=== PATIENT | female | born 1985 | race Caucasian/White ===

== ENCOUNTER 2023-07-27 21:33 | Outpatient (REF) | payer BC, SELFPAY ==
[2023-07-31 09:10] LABS: Age Gdln ACOG Testing Note (.); HPV Aptima Negative (Negative); IGP, Aptima HPV, rfx 16/18,45 Note (.)
== END 2023-07-27 21:34 | disposition home or self-care (01) ==
LOC: LAB 21:33
PROVIDERS: PCP Family Medicine; Visit Provider Obstetrics & Gynecology
DX: Z01.419 Encounter for gynecological examination (general) (routine) without abnormal findings (principal)
CPT/HCPCS: 87624; G0145

== ENCOUNTER 2023-09-21 10:00 | Outpatient (OUT) | payer BC, SELFPAY ==
--- OUTSIDE RECORDS SUMMARY | 2023-09-21 10:08 | XMS_ITS | CCD ---
Author Organization [facility] Care Team Providers Care Senior Net Web Developer Name Role Phone VI, DR GARRETT Admitting Unavailable VI, DR GARRETT Attending Unavailable NADERER, DR ASHER Page Primary Care Unavailable VI, DR GARRETT Consulting Unavailable WEST, DR MARCELLE Minor Consulting Unavailable JUANCARLOS, DR STEWART Primary Care Unavailable VI, DR GARRETT Attending Unavailable VI, DR GARRETT Admitting Unavailable VI, DR GARRETT Consulting Unavailable VI, DR GARRETT Consulting Unavailable JUANCARLOS, DR STEWART Primary Care Unavailable VI, DR GARRETT Attending Unavailable VI, DR GARRETT Admitting Unavailable NADERER, DR ASHER Page Admitting Unavailable NADERER, DR ASHER Page Attending Unavailable NADERER, DR ASHER Page Primary Care Unavailable NADERER, DR ASHER Page Consulting Unavailable VI, DR GARRETT Consulting Unavailable JUANCARLOS, DR STEWART Primary Care Unavailable VI, DR GARRETT Attending Unavailable VI, DR GARRETT Admitting Unavailable VI, DR GARRETT Admitting Unavailable VI, DR GARRETT Attending Unavailable JUANCARLOS, DR STEWART Primary Care Unavailable VI, DR GARRETT Procedure Practitioner Unavailab le VI, DR GARRETT Consulting Unavailable JUANCARLOS, DR STEWART Primary Care Unavailable VI, DR GARRETT Attending Unavailable VI, DR GARRETT Admitting Unavailable LUISA WOLF Consulting Unavailable VI, DR GARRETT Consulting Unavailable JUANCARLOS, DR STEWART Primary Care Unavailable VI, DR GARRETT Attending Unavailable VI, DR GARRETT Admitting Unavailable ZIEBER, DR SIRENA Butler Consulting Unavailable KARVIKI, DR STACK Consulting Unavailable KARGREGK, DR STACK Attending Unavailable KARASIK, DR STACK Admitting Unavailable JUANCARLOS, DR STEWART Primary Care Unavailable MICHELLE, DR MARCELLE Minor Consulting Unavailable VI, DR GARRETT Consulting Unavailable WEST, DR MARCELLE Minor Consulting Unavailable JUANCARLOS, DR STEWART [facility] Unavailable VI, DR GARRETT Attending Unavailable VI, DR GARRETT Admitting Unavailable VI, DR GARRETT Consulting Unavailable KARASIK, DR STACK Consulting Unavailable KARASIK, DR STACK Attending Unavailable KARASIK, DR STACK Admitting Unavailable JUANCARLOS, DR STEWART [facility] Unavailable VI, DR GARRETT Consulting Unavailable ZIEBER, DR SIRENA Butler Consulting Unavailable KARASIK, DR STACK Consulting Unavailable JUANCARLOS, DR STEWART [facility] Unavailable KARASIK, DR STACK Attending Unavailable KARASIK, DR STACK Admitting Unavailable ZIEBER, DR SIRENA Butler Consulting Unavailable KARASIK, DR STACK Consulting Unavailable KARASIK, DR STACK Attending Unavailable KARASIK, DR STACK Admitting Unavailable JUANCARLOS, DR STEWART [facility] Unavailable VI, DR GARRETT Consulting Unavailable ZIEBER, DR SIRENA Butler Consulting Unavailable KARASIK, DR STACK Consulting Unavailable KARASIK, DR STACK Attending Unavailable KARASIK, DR STACK Admitting Unavailable JUANCARLOS, DR STEWART [facility] Unavailable VI, DR GARRETT Consulting Unavailable ZIEBER, DR SIRENA Butler Consulting Unavailable VI, DR GARRETT Admitting Unavailable VI, DR GARRETT Attending Unavailable JUANCARLOS, DR STEWART [facility] Unavailable WEST, DR MARCELLE Minor Consulting Unavailable VI, DR GARRETT Consulting Unavailable VI, DR GARRETT Consulting Unavailable JUANCARLOS, DR STEWART [facility] Unavailable VI, DR GARRETT Attending Unavailable VI, DR GARRETT Admitting Unavailable ZIEBER, DR SIRENA Butler Consulting Unavailable KARASIK, DR STACK Consulting Unavailable JUANCARLOS, DR STEWART [facility] Unavailable VI, DR GARRETT Attending Unavailable VI, DR GARRETT Admitting Unavailable VI, DR GARRETT Consulting Unavailable JUANCARLOS, DR STEWART [facility] Care Unavailable VI, DR GARRETT Attending Unavailable VI, DR GARRETT Admitting Unavailable ZIEBER, DR SIRENA Butler Consulting Unavailable Asher Fuller MD Primary Care Provider ASHER FULLER Attending Unavailable VI, TAMI Attending Unavailable VI, TAMI Attending Unavailable Allergies Allergy Classification Reported Allergen(s) Allergy Type Date of Onset Reaction(s) Facility (1 source) Cefadroxil Drug Allergy [facility] (1 source) Ketorolac Drug Allergy [facility] (1 source) Sulfamethoxazole Drug Allergy [facility] (2 sources) Ketorolac Propensity to adverse reactions 11-05-19 [facility] (2 sources) Ketorolac trometamol Allergy to substance 06-25-19 [facility] Healthcare (2 sources) Sulfonamides (Antibiotic) Drug Allergy 06-25-19 [facility] Healthcare (2 sources) Wound Dressing Adhesive Drug Allergy 06-25-19 [facility] Healthcare Problems Active Problems Problem Classification Problem Date Documented Date Episodic/Chronic Anxiety disorders (2 sources) Acute stress disorder; Translations: [Acute stress reaction] Onset: 07-14-2023 07-14-2023 Chronic Asthma (2 sources) Asthma; Translations: [Unspecified asthma, uncomplicated] Onset: 07-14-2023 07-14-2023 Chronic Immunizations and screening for infectious disease (1 source) Encounter for screening for human papillomavirus (HPV); Translations: [ENC SCREENING HUMAN PAPILLOMAVIRUS] Onset: 07-22-2022 Episodic Mood disorders (2 sources) Recurrent major depression in remission; Translations: [Major depressive disorder, recurrent, in remission, unspecified] Onset: 07-14-2023 07-14-2023 Chronic Other connective tissue disease (2 sources) Plantar fasciitis of left foot; Translations: [Plantar fascial fibromatosis] Onset: 07-14-2023 07-14-2023 Episodic Other female genital disorders (2 sources) Pain in female genitalia on intercourse; Translations: [Unspecified dyspareunia] 07-27-2023 Chronic Other female genital disorders (2 sources) Hypertrophy of labia; Translations: [Unspecified hypertrophy of vulva] 07-27-2023 Episodic Other screening for suspected conditions (not mental disorders or infectious disease) (13 sources) Encounter for screening for malignant neoplasm of cervix; Translations: [Encounter for screening for Streptococcus B] Onset: 08-15-2021 Episodic Unclassified (1 source) CONTACT W/AND (SUSP) EXPOS COVID-19; Translations: [CONTACT W/AND (SUSP) EXPOS COVID-19] Onset: 12-24-2021 Viral infection (2 sources) Genital herpes simplex; Translations: [Herpesviral infection of urogenital system, unspecified] Onset: 07-14-2023 07-14-2023 Chronic Past or Other Problems Problem Classification Problem Date Documented Date Episodic/Chronic Diabetes mellitus without complication (4 sources) Other abnormal glucose; Translations: [OTHER ABNORMAL GLUCOSE] Onset: 09-10-2021 Episodic Hemorrhage during ; abruptio placenta; placenta previa (1 source) Low lying placenta NOS or without hemorrhage, second trimester; Translations: [LOW LYING PL NOS W/O HEMORR 2ND TRI] Onset: 08-19-2021 Episodic Other complications of (5 sources) Supervision of elderly multigravida, third trimester; Translations: [SUP ELDER MULTIGRAVIDA THIRD TRI] Onset: 12-21-2021 Episodic Other complications of (4 sources) Maternal care for excessive growth, third trimester, not applicable or unspecified; Translations: [MAT CARE EXCSS FTL GRTH 3RD TRI UNS] Onset: 11-15-2021 Episodic Other complications of (4 sources) Maternal care for excessive growth, unspecified trimester, not applicable or unspecified; Translations: [MAT CARE EXCSS FTL GRTH UNS TRI UNS] Onset: 09-04-2021 Episodic Other and delivery including normal (5 sources) Encounter for routine follow-up; Translations: [Single live ] Onset: 12-30-2021 Episodic Polyhydramnios and other problems of amniotic cavity (4 sources) Polyhydramnios, third trimester, not applicable or unspecified; Translations: [POLYHYDRAMNIOS THIRD TRI NA/UNS] Onset: 12-17-2021 Episodic Previous (8 sources) Maternal care for unspecified type scar from previous delivery; Translations: [Maternal care for low transverse scar from previous delivery] Onset: 11-17-2021 Episodic Residual codes; unclassified (1 source) 39 weeks gestation of ; Translations: [39 WEEKS GESTATION OF ] Onset: 12-30-2021 Episodic Residual codes; unclassified (1 source) Personal history of other complications of , childbirth and the puerperium; Translations: [PERS HX OTH COMP PG CHILDBIRTH AND PP] Onset: 12-30-2021 Episodic Residual codes; unclassified (1 source) 38 weeks gestation of ; Translations: [38 WEEKS GESTATION OF ] Onset: 12-24-2021 Episodic Residual codes; unclassified (1 source) 37 weeks gestation of ; Translations: [37 WEEKS GESTATION OF ] Onset: 12-21-2021 Episodic Residual codes; unclassified (1 source) 36 weeks gestation of ; Translations: [36 WEEKS GESTATION OF ] Onset: 12-11-2021 Episodic Residual codes; unclassified (1 source) 35 weeks gestation of ; Translations: [35 WEEKS GESTATION OF ] Onset: 12-03-2021 Episodic Residual codes; unclassified (1 source) 34 weeks gestation of ; Translations: [34 WEEKS GESTATION OF ] Onset: 11-25-2021 Episodic Residual codes; unclassified (1 source) 33 weeks gestation of ; Translations: [33 WEEKS GESTATION OF ] Onset: 12-24-2021 Episodic Residual codes; unclassified (1 source) 32 weeks gestation of ; Translations: [32 WEEKS GESTATION OF ] Onset: 12-24-2021 Episodic Residual codes; unclassified (1 source) 28 weeks gestation of ; Translations: [28 WEEKS GESTATION OF ] Onset: 10-15-2021 Episodic Residual codes; unclassified (1 source) 20 weeks gestation of ; Translations: [20 WEEKS GESTATION OF ] Onset: 08-19-2021 Episodic Results Test Name Value Interpretation Reference Range Facility PAP ACOG PANEL 2: 30 to 65on 07-28-2022 . . Normal [facility] Comment on above: Result Comment: Perf ormed at: WB Performed By: #### [id number] #### [facility] [address] [place] [address] Dr. Jensen Mckeon Age Gdln ACOG Testing Normal [facility] Comment on above: Performed By: #### [id number] #### [facility] [address] [address] [address] Jensen Mckeon DIAGNOSIS: Comment Normal [facility] Comment on above: Result Comment: NEGA TIVE FOR INTRAEPITHELIAL LESION OR MALIGNANCY. Performed at: WB Performed By: #### [id number] #### [facility] [address] [address] [address] Jensen Mckeon HPV Aptima Negative Normal Negative [facility] Comment on above: Result Comment: This nucleic acid amplification test detects fourteen high-risk HPV types (16,18,31,33,35,39,45,51,52,56,58,59,66,68) without differentiation. Performed at: =G Performed By: #### [id number] #### [facility] [address] [place] [address] Dr. Jensen Mckeon HPV Genotype Reflex Comment Normal [facility] Comment on above: Result Comment: Crit eria not met, HPV Genotype not performed. Performed at: WB Performed By: #### [id number] #### [facility] [address] [place] [address] Dr. Jensen Mckeon Methodology: CTIM Normal [facility] Comment on above: Result Comment: The Thin Prep(R) Review Assistant was unable to read this specimen. Therefore a manual review was performed. Performed at: WB Performed By: #### [id number] #### [facility] [address] [place] [address] Dr. Jensen Mckeon Note: Comment Normal [facility] Comment on above: Result Comment: The Pap smear is a screening test designed to aid in the detection of premalignant and malignant conditions of the uterine cervix. It is not a diagnostic procedure and should not be used as the sole means of detecting cervical cancer. Both false-positive and false-negative reports do occur. . Performed at: WB Performed By: #### [id number] #### [facility] [address] [place] [address] Dr. Jensen Mckeon Performed by: Comment Normal [facility] Comment on above: Result Comment: Yo Garcia, Heel Seat Filler (ASCP) Performed at: WB Performed By: #### [id number] #### [facility] [address] [place] [address] Dr. Jensen Mckeon Specimen adequacy: Comment Normal [facility] Comment on above: Result Comment: Sati sfactory for evaluation. Endocervical and/or squamous metaplastic cells (endocervical component) are present. Performed at: WB Performed By: #### [id number] #### [facility] [address] [place] [address] Dr. Jensen Mckeon CBC AUTO DIFFon 04-09-2022 BASO # 0.1 103/ul Normal 0.0-0.1 [facility] Comment on above: Performed By: #### L IVER, BMP, TSH, LIPID #### [facility] [address] [place] [address] Dr. Jensen Mckeon Basophils/100 WBC (Bld) 0.7 % Normal 0.2-2.0 [facility] Comment on above: Performed By: #### L IVER, BMP, TSH, LIPID #### [facility] [address] [place] [address] Dr. Jensen Mckeon EO # 0.3 103/ul Normal 0.0-0.7 [facility] Comment on above: Performed By: #### L IVER, BMP, TSH, LIPID #### [facility] [address] [place] [address] Dr. Jensen Mckeon Eosinophils/100 WBC (Bld) 4.0 % Normal 0.9-7.0 [facility] Comment on above: Performed By: #### L IVER, BMP, TSH, LIPID #### [facility] [address] [place] [address] Dr. Jensen Mckeon Erythrocyte distribution width (RBC) [Ratio] 14.6 % Normal 11.0-15.0 [facility] Comment on above: Performed By: #### L IVER, BMP, TSH, LIPID #### [facility] [address] [place] [address] Dr. Jensen Mckeon Hematocrit (Bld) [Volume fraction] 39.7 % Normal 36.0-48.0 [facility] Comment on above: Performed By: #### L IVER, BMP, TSH, LIPID #### [facility] [address] [place] [address] Dr. Jensen Mckeon Hemoglobin (Bld) [Mass/Vol] 12.8 g/dL Normal 12.0-16.0 [facility] Comment on above: Performed By: #### L IVER, BMP, TSH, LIPID #### [facility] [address] [address] [address] Jensen Mckeon IG # 0.02 10e3/ul Normal 0.00-0.03 [facility] Comment on above: Performed By: #### L IVER, BMP, TSH, LIPID #### [facility] [address] [place] [address] Dr. Jensen Mckeon IG % 0.3 % Normal 0.0-0.5 [facility] Comment on above: Performed By: #### L IVER, BMP, TSH, LIPID #### [facility] [address] [place] [address] Dr. Jensen Mckeon LYMPH # 1.2 103/ul Normal 1.2-3.8 [facility] Comment on above: Performed By: #### L IVER, BMP, TSH, LIPID #### [facility] [address] [place] [address] Dr. Jensen Mckeon Lymphocytes/100 WBC (Bld) 15.7 % Critically low 20.5-60.0 [facility] Comment on above: Performed By: #### L IVER, BMP, TSH, LIPID #### [facility] [address] [place] [address] Dr. Jensen Mckeon MANUAL DIFF REQ NO Normal [facility] Comment on above: Performed By: #### L IVER, BMP, TSH, LIPID #### [facility] [address] [place] [address] Dr. Jensen Mckeon MCH (RBC) [Entitic mass] 26.7 pg Normal 26.7-34.0 [facility] Comment on above: Performed By: #### L IVER, BMP, TSH, LIPID #### [facility] [address] [place] [address] Dr. Jensen Mckeon MCHC (RBC) [Mass/Vol] 32.2 g/dL Normal 29.9-35.2 [facility] Comment on above: Performed By: #### L IVER, BMP, TSH, LIPID #### [facility] [address] [place] [address] Dr. Jensen Mckeon MCV (RBC) [Entitic vol] 82.9 fL Normal 81.0-99.0 [facility] Comment on above: Performed By: #### L IVER, BMP, TSH, LIPID #### [facility] [address] [place] [address] Dr. Jensen Mckeon MONO # 0.7 103/ul Normal 0.3-0.8 [facility] Comment on above: Performed By: #### L IVER, BMP, TSH, LIPID #### [facility] [address] [place] [address] Dr. Jensen Mckeon Monocytes/100 WBC (Bld) 9.2 % Normal 1.7-12.0 [facility] Comment on above: Performed By: #### L IVER, BMP, TSH, LIPID #### [facility] [address] [place] [address] Dr. Jensen Mckeon NEUT # 5.3 103/ul Normal 1.4-6.5 [facility] Comment on above: Performed By: #### L IVER, BMP, TSH, LIPID #### [facility] [address] [place] [address] Dr. Jensen Mckeon Neutrophils/100 WBC (Bld) 70.1 % Normal 43.0-75.0 [facility] Comment on above: Performed By: #### L IVER, BMP, TSH, LIPID #### [facility] [address] [place] [address] Dr. Jensen Mckeon Platelet mean volume (Bld) [Entitic vol] 9.1 fL Critically low 9.5-13.5 [facility] Comment on above: Performed By: #### L IVER, BMP, TSH, LIPID #### [facility] [address] [place] [address] Dr. Jensen Mckeon PLT 310 103/ul Normal 150-450 [facility] Comment on above: Performed By: #### L IVER, BMP, TSH, LIPID #### [facility] [address] [place] [address] Dr. Jensen Mckeon RBC 4.79 106/ul Normal 4.20-5.40 [facility] Comment on above: Performed By: #### L IVER, BMP, TSH, LIPID #### [facility] [address] [address] [address] Jensen Mckeon WBC 7.5 103/ul Normal 4.0-11.0 [facility] Comment on above: Performed By: #### L IVER, BMP, TSH, LIPID #### [facility] [address] [address] [address] Jensen Mckeon GLYCOHEMOGLOBIN A1Con 2021 ADA RECOMMENDATION SEE BELOW Normal [facility] Comment on above: Result Comment: ADA RECOMMENDED LIMIT 4.0 - 6.0 ADA THERAPEUTIC TARGET < 7.0 ACTION SUGGESTED > 7.0 Performed By: #### L IVER, BMP, TSH, LIPID #### [facility] [address] [address] [address] Jensen Mckeon Glucose [Mass/Vol] 123 mg/dL Normal [facility] Comment on above: Performed By: #### L IVER, BMP, TSH, LIPID #### [facility] [address] [address] [address] Jensen Mckeon HbA1c (Bld) [Mass fraction] 5.9 % Normal 4.5-6.2 [facility] Comment on above: Performed By: #### L IVER, BMP, TSH, LIPID #### [facility] [address] [place] [address] Dr. Jensen Mckeon LIPID PROFILEon 04-09-2022 CHOL-HDL RATIO NORM SEE BELOW Normal [facility] Comment on above: Result Comment: 3.3 - 4.4 LOW RISK 4.4 - 7.1 AVERAGE RISK 7.1 - 11.0 MODERATE RISK >11.0 HIGH RISK Performed By: #### L IVER, BMP, TSH, LIPID #### [facility] [address] [address] [address] Jensen Mckeon Cholesterol [Mass/Vol] 174 mg/dL Normal <=200 [facility] Comment on above: Performed By: #### L IVER, BMP, TSH, LIPID #### [facility] [address] [address] [address] Jensen Mckeon Cholesterol in HDL [Mass/Vol] 75 mg/dL Critically high 40-60 [facility] Comment on above: Performed By: #### L IVER, BMP, TSH, LIPID #### [facility] [address] [address] [address] Jensen Mckeon Cholesterol in LDL [Mass/Vol] 86.0 mg/dL Normal [facility] Comment on above: Performed By: #### L IVER, BMP, TSH, LIPID #### [facility] [address] [address] [address] Jensen Mckeon Cholesterol.total/Cho lesterol in HDL [Mass ratio] 2.3 {ratio} Normal [facility] Comment on above: Performed By: #### L IVER, BMP, TSH, LIPID #### [facility] [address] [address] [address] Jensen Mckeon HDL NORMAL > or = 60 mg/dl - LO W CARDIOVASCULAR RISK <40 mg/dl - HIGH CARDIOVASCULAR RISK Normal [facility] Comment on above: Performed By: #### L IVER, BMP, TSH, LIPID #### [facility] [address] [place] [address] Dr. Jensen Mckeon LDL CALC NORMAL SEE BELOW Normal [facility] Comment on above: Result Comment: <100 mg/dl OPTIMAL 100 - 129 mg/dl NEAR OR ABOVE OPTIMAL 130 - 159 mg/dl BORDERLINE HIGH 160 - 189 mg/dl HIGH >190 mg/dl VERY HIGH Performed By: #### L IVER, BMP, TSH, LIPID #### [facility] [address] [address] [address] Jensen Mckeon Triglyceride [Mass/Vol] 65 mg/dL Normal <=150 [facility] Comment on above: Performed By: #### L IVER, BMP, TSH, LIPID #### [facility] [address] [address] [address] Jensen Mckeon VLDL CALC 13.0 mg/dL Normal [facility] Comment on above: Performed By: #### L IVER, BMP, TSH, LIPID #### [facility] [address] [address] [address] Jensen Mckeon LIVER PROFILEon 04-09-2022 Albumin [Mass/Vol] 3.9 g/dL Normal 3.4-5.0 [facility] Comment on above: Performed By: #### L IVER, BMP, TSH, LIPID #### [facility] [address] [place] [address] Dr. Jensen Mckeon Albumin/Globulin [Mass ratio] 1.0 {ratio} Normal [facility] Comment on above: Performed By: #### L IVER, BMP, TSH, LIPID #### [facility] [address] [place] [address] Dr. Jensen Mckeon ALP [Catalytic activity/Vol] 94 U/L Normal 46-116 [facility] Comment on above: Performed By: #### L IVER, BMP, TSH, LIPID #### [facility] [address] [place] [address] Dr. Jensen Mckeon ALT [Catalytic activity/Vol] 40 U/L Normal 14-59 [facility] Comment on above: Performed By: #### L IVER, BMP, TSH, LIPID #### [facility] [address] [place] [address] Dr. Jensen Mckeon AST [Catalytic activity/Vol] 22 U/L Normal 15-37 [facility] Comment on above: Performed By: #### L IVER, BMP, TSH, LIPID #### [facility] [address] [place] [address] Dr. Jensen Mckeon BILI, CONJUGATED 0.1 mg/dL Normal 0.0-0.2 [facility] Comment on above: Performed By: #### L IVER, BMP, TSH, LIPID #### [facility] [address] [place] [address] Dr. Jensen Mckeon Bilirubin [Mass/Vol] 0.2 mg/dL Normal 0.2-1.0 [facility] Comment on above: Performed By: #### L IVER, BMP, TSH, LIPID #### [facility] [address] [place] [address] Dr. Jensen Mckeon Globulin (S) [Mass/Vol] 3.8 g/dL Normal [facility] Comment on above: Performed By: #### L IVER, BMP, TSH, LIPID #### [facility] [address] [address] [address] Jensen Mckeon Protein [Mass/Vol] 7.7 g/dL Normal 6.4-8.2 [facility] Comment on above: Performed By: #### L IVER, BMP, TSH, LIPID #### [facility] [address] [place] [address] Dr. Jensen Mckeon PROF CHEM 8 (BAS METB)on Anion gap [Moles/Vol] 11.3 mmol/L Normal [facility] Comment on above: Performed By: #### L IVER, BMP, TSH, LIPID #### [facility] [address] [place] [address] Dr. Jensen Mckeon Calcium [Mass/Vol] 9.5 mg/dL Normal 8.5-10.1 [facility] Comment on above: Performed By: #### L IVER, BMP, TSH, LIPID #### [facility] [address] [place] [address] Dr. Jensen Mckeon Chloride [Moles/Vol] 103 mmol/L Normal 98-107 [facility] Comment on above: Performed By: #### L IVER, BMP, TSH, LIPID #### [facility] [address] [place] [address] Dr. Jensen Mckeon CO2 [Moles/Vol] 27.8 mmol/L Normal 21.0-32.0 [facility] Comment on above: Performed By: #### L IVER, BMP, TSH, LIPID #### [facility] [address] [place] [address] Dr. Jensen Mckeon Creatinine [Mass/Vol] 0.79 mg/dL Normal 0.55-1.02 [facility] Comment on above: Performed By: #### L IVER, BMP, TSH, LIPID #### [facility] [address] [place] [address] Dr. Jensen Mckeon EGFR-AF MALAYSIAN >60 Normal >=60 [facility] Comment on above: Performed By: #### L IVER, BMP, TSH, LIPID #### [facility] [address] [address] [address] Jensen Mckeon EGFR-NON AF MALAYSIAN >60 Normal >=60 [facility] Comment on above: Performed By: #### L IVER, BMP, TSH, LIPID #### [facility] [address] [address] [address] Jensen Mckeon Glucose [Mass/Vol] 77 mg/dL Normal 74-106 [facility] Comment on above: Performed By: #### L IVER, BMP, TSH, LIPID #### [facility] Laboratory [address] [address] [address] Jensen Mckeon Potassium [Moles/Vol] 4.1 mmol/L Normal 3.5-5.1 [facility] Comment on above: Performed By: #### L IVER, BMP, TSH, LIPID #### [facility] [address] [address] [address] Jensen Mckeon Sodium [Moles/Vol] 138 mmol/L Normal 136-145 [facility] Comment on above: Performed By: #### L IVER, BMP, TSH, LIPID #### [facility] [address] [address] [address] Jensen Mckeon Urea nitrogen [Mass/Vol] 15.0 mg/dL Normal 7.0-18.0 [facility] Comment on above: Performed By: #### L IVER, BMP, TSH, LIPID #### [facility] [address] [address] [address] Jensen Mckeon Urea nitrogen/Creatinine [Mass ratio] 19.0 mg/mg Normal [facility] Comment on above: Performed By: #### L IVER, BMP, TSH, LIPID #### [facility] [address] [place] [address] Dr. Jensen Mckeon TSHon 04-09-2022 TSH 0.959 uIU/mL Normal 0.358-3.740 [facility] Comment on above: Performed By: #### L IVER, BMP, TSH, LIPID #### [facility] [address] [address] [address] Jensen Mckeon CBC AUTO DIFFon 12-26-2021 BASO # 0.1 103/ul Normal 0.0-0.1 [facility] Comment on above: Performed By: #### L IVER, BMP, TSH, LIPID #### [facility] [address] [place] [address] Dr. Jensen Mckeon Basophils/100 WBC (Bld) 0.4 % Normal 0.2-2.0 [facility] Comment on above: Performed By: #### L IVER, BMP, TSH, LIPID #### [facility] [address] [place] [address] Dr. Jensen Mckeon EO # 0.1 103/ul Normal 0.0-0.7 [facility] Comment on above: Performed By: #### L IVER, BMP, TSH, LIPID #### [facility] [address] [place] [address] Dr. Jensen Mckeon Eosinophils/100 WBC (Bld) 0.4 % Critically low 0.9-7.0 [facility] Comment on above: Performed By: #### L IVER, BMP, TSH, LIPID #### [facility] [address] [place] [address] Dr. Jensen Mckeon Erythrocyte distribution width (RBC) [Ratio] 15.1 % Critically high 11.0-15.0 [facility] Comment on above: Performed By: #### L IVER, BMP, TSH, LIPID #### [facility] [address] [place] [address] Dr. Jensen Mckeon Hematocrit (Bld) [Volume fraction] 24.2 % Critically low 36.0-48.0 [facility] Comment on above: Performed By: #### L IVER, BMP, TSH, LIPID #### [facility] [address] [place] [address] Dr. Jensen Mckeon Hemoglobin (Bld) [Mass/Vol] 7.4 g/dL Critically low 12.0-16.0 [facility] Comment on above: Performed By: #### L IVER, BMP, TSH, LIPID #### [facility] [address] [place] [address] Dr. Jensen Mckeon IG # 0.18 10e3/ul Critically high 0.00-0.03 [facility] Comment on above: Performed By: #### L IVER, BMP, TSH, LIPID #### [facility] [address] [address] [address] Jensen Mckeon IG % 1.3 % Critically high 0.0-0.5 [facility] Comment on above: Performed By: #### L IVER, BMP, TSH, LIPID #### [facility] [address] [address] [address] Jensen Mckeon LYMPH # 1.7 103/ul Normal 1.2-3.8 [facility] Comment on above: Performed By: #### L IVER, BMP, TSH, LIPID #### [facility] [address] [place] [address] Dr. Jensen Mckeon Lymphocytes/100 WBC (Bld) 12.4 % Critically low 20.5-60.0 [facility] Comment on above: Performed By: #### L IVER, BMP, TSH, LIPID #### [facility] [address] [place] [address] Dr. Jensen Mckeon MANUAL DIFF REQ NO Normal [facility] Comment on above: Performed By: #### L IVER, BMP, TSH, LIPID #### [facility] [address] [place] [address] Dr. Jensen Mckeon MCH (RBC) [Entitic mass] 24.9 pg Critically low 26.7-34.0 [facility] Comment on above: Performed By: #### L IVER, BMP, TSH, LIPID #### [facility] [address] [place] [address] Dr. Jensen Mckeon MCHC (RBC) [Mass/Vol] 30.6 g/dL Normal 29.9-35.2 [facility] Comment on above: Performed By: #### L IVER, BMP, TSH, LIPID #### [facility] [address] [place] [address] Dr. Jensen Mcekon MCV (RBC) [Entitic vol] 81.5 fL Normal 81.0-99.0 [facility] Comment on above: Performed By: #### L IVER, BMP, TSH, LIPID #### [facility] [address] [place] [address] Dr. Jensen Mckeon MONO # 1.0 103/ul Critically high 0.3-0.8 [facility] Comment on above: Performed By: #### L IVER, BMP, TSH, LIPID #### [facility] [address] [place] [address] Dr. Jensen Mckeon Monocytes/100 WBC (Bld) 7.4 % Normal 1.7-12.0 [facility] Comment on above: Performed By: #### L IVER, BMP, TSH, LIPID #### [facility] [address] [place] [address] Dr. Jensen Mckeon NEUT # 10.9 103/ul Critically high 1.4-6.5 [facility] Comment on above: Performed By: #### L IVER, BMP, TSH, LIPID #### [facility] [address] [place] [address] Dr. Jensen Mckeon Neutrophils/100 WBC (Bld) 78.1 % Critically high 43.0-75.0 [facility] Comment on above: Performed By: #### L IVER, BMP, TSH, LIPID #### [facility] [address] [place] [address] Dr. Jensen Mckeon Platelet mean volume (Bld) [Entitic vol] 9.0 fL Critically low 9.5-13.5 [facility] Comment on above: Performed By: #### L IVER, BMP, TSH, LIPID #### [facility] [address] [place] [address] Dr. Jensen Mckeon PLT 253 103/ul Normal 150-450 [facility] Comment on above: Performed By: #### L IVER, BMP, TSH, LIPID #### [facility] [address] [place] [address] Dr. Jensen Mckeon RBC 2.97 106/ul Critically low 4.20-5.40 [facility] Comment on above: Performed By: #### L IVER, BMP, TSH, LIPID #### [facility] [address] [place] [address] Dr. Jensen Mckeon WBC 13.9 103/ul Critically high 4.0-11.0 [facility] Comment on above: Performed By: #### L IVER, BMP, TSH, LIPID #### [facility] [address] [place] [address] Dr. Jensen Mckeon CBC AUTO DIFFon 12-25-2021 BASO # 0.1 103/ul Normal 0.0-0.1 [facility] Comment on above: Performed By: #### L IVER, BMP, TSH, LIPID #### [facility] [address] [place] [address] Dr. Jensen Mckeon Basophils/100 WBC (Bld) 0.8 % Normal 0.2-2.0 [facility] Comment on above: Performed By: #### L IVER, BMP, TSH, LIPID #### [facility] [address] [place] [address] Dr. Jensen Mckeon EO # 0.2 103/ul Normal 0.0-0.7 [facility] Comment on above: Performed By: #### L IVER, BMP, TSH, LIPID #### [facility] [address] [place] [address] Dr. Jensen Mckeon Eosinophils/100 WBC (Bld) 2.1 % Normal 0.9-7.0 [facility] Comment on above: Performed By: #### L IVER, BMP, TSH, LIPID #### [facility] [address] [place] [address] Dr. Jensen Mckeon Erythrocyte distribution width (RBC) [Ratio] 14.9 % Normal 11.0-15.0 [facility] Comment on above: Performed By: #### L IVER, BMP, TSH, LIPID #### [facility] [address] [place] [address] Dr. Jensen Mckeon Hematocrit (Bld) [Volume fraction] 29.8 % Critically low 36.0-48.0 [facility] Comment on above: Performed By: #### L IVER, BMP, TSH, LIPID #### [facility] [address] [place] [address] Dr. Jensen Mckeon Hemoglobin (Bld) [Mass/Vol] 9.5 g/dL Critically low 12.0-16.0 [facility] Comment on above: Performed By: #### L IVER, BMP, TSH, LIPID #### [facility] [address] [address] [address] Jensen Mckeon IG # 0.19 10e3/ul Critically high 0.00-0.03 [facility] Comment on above: Performed By: #### L IVER, BMP, TSH, LIPID #### [facility] [address] [address] [address] Jensen Mckeon IG % 2.0 % Critically high 0.0-0.5 [facility] Comment on above: Performed By: #### L IVER, BMP, TSH, LIPID #### [facility] [address] [address] [address] Jensen Mckeon LYMPH # 1.9 103/ul Normal 1.2-3.8 [facility] Comment on above: Performed By: #### L IVER, BMP, TSH, LIPID #### [facility] [address] [address] [address] Jensen Mckeon Lymphocytes/100 WBC (Bld) 20.6 % Normal 20.5-60.0 [facility] Comment on above: Performed By: #### L IVER, BMP, TSH, LIPID #### [facility] [address] [address] [address] Jensen Mckeon MANUAL DIFF REQ NO Normal [facility] Comment on above: Performed By: #### L IVER, BMP, TSH, LIPID #### [facility] [address] [address] [address] Jensen Mckeon MCH (RBC) [Entitic mass] 25.3 pg Critically low 26.7-34.0 [facility] Comment on above: Performed By: #### L IVER, BMP, TSH, LIPID #### [facility] [address] [address] [address] Jensen Mckeon MCHC (RBC) [Mass/Vol] 31.9 g/dL Normal 29.9-35.2 [facility] Comment on above: Performed By: #### L IVER, BMP, TSH, LIPID #### [facility] [address] [place] [address] Dr. Jensen Mckeon MCV (RBC) [Entitic vol] 79.3 fL Critically low 81.0-99.0 [facility] Comment on above: Performed By: #### L IVER, BMP, TSH, LIPID #### [facility] [address] [place] [address] Dr. Jensen Mckeon MONO # 0.8 103/ul Normal 0.3-0.8 [facility] Comment on above: Performed By: #### L IVER, BMP, TSH, LIPID #### [facility] [address] [place] [address] Dr. Jensen Mckeon Monocytes/100 WBC (Bld) 8.0 % Normal 1.7-12.0 [facility] Comment on above: Performed By: #### L IVER, BMP, TSH, LIPID #### [facility] [address] [place] [address] Dr. Jensen Mckeon NEUT # 6.2 103/ul Normal 1.4-6.5 [facility] Comment on above: Performed By: #### L IVER, BMP, TSH, LIPID #### [facility] [address] [place] [address] Dr. Jensen Mckeon Neutrophils/100 WBC (Bld) 66.5 % Normal 43.0-75.0 [facility] Comment on above: Performed By: #### L IVER, BMP, TSH, LIPID #### [facility] [address] [place] [address] Dr. Jensen Mckeon Platelet mean volume (Bld) [Entitic vol] 9.2 fL Critically low 9.5-13.5 [facility] Comment on above: Performed By: #### L IVER, BMP, TSH, LIPID #### [facility] [address] [place] [address] Dr. Jensen Mckeon PLT 300 103/ul Normal 150-450 [facility] Comment on above: Performed By: #### L IVER, BMP, TSH, LIPID #### [facility] [address] [address] [address] Jensen Mckeon RBC 3.76 106/ul Critically low 4.20-5.40 [facility] Comment on above: Performed By: #### L IVER, BMP, TSH, LIPID #### [facility] [address] [place] [address] Dr. Jensen Mckeon WBC 9.3 103/ul Normal 4.0-11.0 [facility] Comment on above: Performed By: #### L IVER, BMP, TSH, LIPID #### [facility] [address] [place] [address] Dr. Jensen Mckeon CULTURE URINEon 12-25-2021 CULTURE URINE Culture Observations : LIGHT GROWTH OF MIXED GENITAL DALIA. NO POTENTIAL PATHOGENS SEEN. Normal [facility] Comment on above: Performed By: #### L IVER, BMP, TSH, LIPID #### [facility] [address] [place] [address] Dr. Jensen Mckeon DRUG SCREEN RAPID (URINE)on 12-25-2021 AMP Negative Normal NEGATIVE [facility] Comment on above: Performed By: #### D RUGRPD #### [facility] [address] [place] [address] Dr. Jensen Mckeon BAR Negative Normal NEGATIVE [facility] Comment on above: Performed By: #### D RUGRPD #### [facility] [address] [place] [address] Dr. Jensen Mckeon BUP Negative Normal NEGATIVE [facility] Comment on above: Performed By: #### D RUGRPD #### [facility] [address] [place] [address] Dr. Jensen Mckeon BZO Negative Normal NEGATIVE [facility] Comment on above: Performed By: #### D RUGRPD #### [facility] [address] [place] [address] Dr. Jensen Mckeon WES Negative Normal NEGATIVE [facility] Comment on above: Performed By: #### D RUGRPD #### [facility] [address] [place] [address] Dr. Jensen Mckeon CUT-OFFS SEE BELOW Normal [facility] Comment on above: Result Comment: AMP (Amphetamine): 500ng/mL, BAR (Barbituates): 200 ng/mL, BZO (Benzodiazepines): 150 ng/mL, BUP (Buprenorphine): 10 ng/mL, WES (Cocaine): 150 ng/mL, mAMP (Methamphetamine): 500 ng/mL, MTD (Methadone): 200 ng/mL, OPI (Opiates): 100 ng/mL, OXY (Oxycodone): 100 ng/mL, PCP (Phencyclidine): 25 ng/mL, PPX (Propoxyphene): 300 ng/mL, THC (Cannabinoids): 50 ng/mL, TCA (Trycyclic Antidepressants): 300 ng/mL Performed By: #### D RUGRPD #### [facility] [address] [place] [address] Dr. Jensen Mckeon DRUG CUT HEADER DRUG CLASS TEST SYSTEM CUT-OFF CONCENTRATIONS ARE FOLLOWS: Normal [facility] Comment on above: Performed By: #### D RUGRPD #### [facility] [address] [place] [address] Dr. Jensen Mckeon mAMP Negative Normal NEGATIVE [facility] Comment on above: Performed By: #### D RUGRPD #### [facility] [address] [place] [address] Dr. Jensen Mckeon MTD Negative Normal NEGATIVE [facility] Comment on above: Performed By: #### D RUGRPD #### [facility] [address] [place] [address] Dr. Jensen Mckeon OPI Negative Normal NEGATIVE [facility] Comment on above: Performed By: #### D RUGRPD #### [facility] [address] [place] [address] Dr. Jensen Mckeon OXY Negative Normal NEGATIVE [facility] Comment on above: Performed By: #### D RUGRPD #### [facility] [address] [place] [address] Dr. Jensen Mckeon PCP Negative Normal NEGATIVE [facility] Comment on above: Performed By: #### D RUGRPD #### [facility] [address] [address] [address] Jensen Mckeon PPX Negative Normal NEGATIVE [facility] Comment on above: Performed By: #### D RUGRPD #### [facility] [address] [place] [address] Dr. Jensen Mckeon TCA Negative Normal NEGATIVE [facility] Comment on above: Performed By: #### D RUGRPD #### [facility] [address] [place] [address] Dr. Jensen Mckeon THC Negative Normal NEGATIVE [facility] Comment on above: Performed By: #### D RUGRPD #### [facility] [address] [place] [address] Dr. Jensen Mckeon TYPE AND SCREENon 12-25-2021 TYPE AND SCREEN Negative Normal [facility] Comment on above: Performed By: #### L IVER, BMP, TSH, LIPID #### [facility] [address] [place] [address] Dr. Jensen Mckeon UA (CLEAN/CATCH) HUMAN RESOURCES DESIGNATE/MICRO I F IND.on 12-25-2021 Bilirubin Ql (U) Negative Normal NEGATIVE [facility] Comment on above: Performed By: #### U ACSIND, UMICRO #### [facility] [address] [place] [address] Dr. Jensen Mckeon Clarity (U) CLEAR Normal CLEAR [facility] Comment on above: Performed By: #### U ACSIND, UMICRO #### [facility] [address] [place] [address] Dr. Jnesen Mckeon Color (U) LT. YELLOW Normal YELLOW [facility] Comment on above: Performed By: #### U ACSIND, UMICRO #### [facility] [address] [place] [address] Dr. Jensen Mckeon Glucose Ql (U) Negative Normal NEGATIVE [facility] Comment on above: Performed By: #### U ACSIND, UMICRO #### [facility] [address] [place] [address] Dr. Jensen Mckeon Hemoglobin Ql (U) Negative Normal NEGATIVE [facility] Comment on above: Performed By: #### U ACSIND, UMICRO #### [facility] [address] [address] [address] Jensen Mckeon Ketones Ql (U) Negative Normal NEGATIVE [facility] Comment on above: Performed By: #### U ACSIND, UMICRO #### [facility] [address] [address] [address] Jensen Mckeon LEUKOCYTES TRACE Abnormal NEGATIVE [facility] Comment on above: Performed By: #### U ACSIND, UMICRO #### [facility] [address] [address] [address] Jensen Mckeon Nitrite Ql (U) Negative Normal NEGATIVE [facility] Comment on above: Performed By: #### U ACSIND, UMICRO #### [facility] [address] [place] [address] Dr. Jensen Mckeon pH (U) 6.5 [pH] Normal 5-9 [facility] Comment on above: Performed By: #### U ACSCASSANDRA, UMICRO #### [facility] [address] [place] [address] Dr. Jensen Mckeon SPEC GRAVITY 1.025 Normal 1.005-<=1.025 [facility] Comment on above: Performed By: #### U ACSCASSANDRA, UMICRO #### [facility] [address] [place] [address] Dr. Jensen Mckeon UA PROTEIN Negative Normal NEGATIVE/ TRACE [facility] Comment on above: Performed By: #### U ACSCASSANDRA, UMICRO #### [facility] [address] [place] [address] Dr. Jensen Mckeon UR MICRO IND INDICATED Normal [facility] Comment on above: Performed By: #### U ACSIND, UMICRO #### [facility] [address] [place] [address] Dr. Jensen Mckeon Urobilinogen Qn (U) 0.2 {Cherelle'U}/dL Normal 0.2 - 1. 0 [facility] Comment on above: Performed By: #### U ACSIND, UMICRO #### [facility] [address] [place] [address] Dr. Jensen Mckeon URINE MICROSCOPIC ONLYon BACTERIA MODERATE Abnormal NONE SEEN [facility] Comment on above: Performed By: #### U ACSIND, UMICRO #### [facility] [address] [place] [address] Dr. Jensen Mckeon Bacteria identified Cx Nom (U) INDICATED Normal [facility] Comment on above: Performed By: #### U ACSIND, UMICRO #### [facility] [address] [place] [address] Dr. Jensen Mckeon CAST NONE SEEN Normal NONE SEEN [facility] Comment on above: Performed By: #### U ACSIND, UMICRO #### [facility] [address] [place] [address] Dr. Jensen Mckeon Crystals LM Nom (Urine sed) NONE SEEN Normal NONE SEEN [facility] Comment on above: Performed By: #### U ACSIND, UMICRO #### [facility] [address] [place] [address] Dr. Jensen Mckeon Epithelial cells LM Ql (Urine sed) MANY Abnormal NONE SEEN /RARE [facility] Comment on above: Performed By: #### U ACSIND, UMICRO #### [facility] [address] [place] [address] Dr. Jensen Mckeon MUCOUS NONE SEEN Normal NONE SEEN [facility] Comment on above: Performed By: #### U ACSIND, UMICRO #### [facility] [address] [place] [address] Dr. Jensen Mckeon RBC 0-2 Normal 0-2 [facility] Comment on above: Performed By: #### U ACSIND, UMICRO #### [facility] [address] [place] [address] Dr. Jensen Mckeon WBC 5-10 Abnormal NONE SEEN [facility] Comment on above: Performed By: #### U ACSIND, UMICRO #### [facility] [address] [place] [address] Dr. Jensen Mckeon Covid-19 PCR (CVDTB)on 12-12 SARS-CoV-2 (COVID-19) RNA SRAVANTHI+probe Ql (Unsp spec) Not detected Normal NOT DETECTED [facility] Comment on above: Result Comment: This test is not yet approved or cleared by the [place] FDA. When there are no FDA-approved or cleared tests available, and other criteria are met, FDA can make tests available under an emergency access mechanism called an Emergency Use Authorization (EUA). The EUA for this test is supported by the [place] of Health and Human Service's (HHS's) declaration that circumstances exist to justify the emergency use of in vitro diagnostics for the detection and/or diagnosis of the virus that causes COVID-19. This EUA will remain in effect (meaning this test can be used) for the duration of the COVID-19 declaration justifying emergency of IVDs, unless it is terminated or revoked by FDA (after which the test may no longer be used). When diagnostic testing is negative, the possibility of a false negative should be considered in the context of a patient's recent exposures and the presence of clinical signs and symptoms consistent with SARS-CoV-2. Performed By: #### L IVER, BMP, TSH, LIPID #### [facility] [address] [place] [address] Dr. Jensen Mckeon US PREG BIOPHY W NON STRESSo n 12-22-2021 US PREG BIOPHY W NON STRESS EXAMINATION: US PREG BIOPHY W NON STRESS HISTORY: Advanced maternal age COMPARISON: No relevant comparison available. TECHNIQUE: Ultrasound biophysical profile was performed in the radiology department. FINDINGS: BREATHING MOVEMENTS: 2.0 GROSS BODY MOVEMENTS: 2.0 TONE: 2.0 QUALITATIVE AMNIOTIC FLUID VOLUME: 2.0 PRESENTATION: Cephalic HEART RATE: 151.7 bpm H.B./min AMNIOTIC FLUID VOLUME: 18.3 cm cm GESTATIONAL AGE: 38 weeks 4 days CONCLUSION: Total biophysical profile score: 8.0 Electronically authenticated by: MARCELLE MARTINEZ Date: 2021-12-22 19:25 Normal [facility] US PREG BIOPHY W NON STRESSo n 12-17-2021 US PREG BIOPHY W NON STRESS EXAMINATION: US PREG BIOPHY W NON STRESS HISTORY: Patient currently COMPARISON: Ultrasound biophysical 12/16/2021 TECHNIQUE: Ultrasound biophysical profile was performed. FINDINGS: BREATHING MOVEMENTS: 2.0 GROSS BODY MOVEMENTS: 2.0 TONE: 2.0 QUALITATIVE AMNIOTIC FLUID VOLUME: 2.0 PRESENTATION: CEPHALIC HEART RATE: 144.4 bpm bpm. AMNIOTIC FLUID VOLUME: 15.4 cm GESTATIONAL AGE: 37 weeks 6 days CONCLUSION: Total biophysical profile score 8.0. Electronically authenticated by: SIRENA FRANKS Date: 2021-12-17 17:13 Normal [facility] US PREG BIOPHY W NON STRESS EXAMINATION: US PREG BIOPHY W NON STRESS HISTORY: Multigravida of advanced maternal age COMPARISON: Ultrasound biophysical 12/08/2021 TECHNIQUE: Ultrasound biophysical profile was performed. FINDINGS: BREATHING MOVEMENTS: 0.0 GROSS BODY MOVEMENTS: 2.0 TONE: 2.0 QUALITATIVE AMNIOTIC FLUID VOLUME: 2.0 PRESENTATION: CEPHALIC HEART RATE: 135.0 bpm bpm. AMNIOTIC FLUID VOLUME: 17.4 cm GESTATIONAL AGE: 37 weeks 5 days CONCLUSION: Total biophysical profile score 6.0. Electronically authenticated by: SIRENA FRANKS Date: 2021-12-17 16:20 Normal [facility] US PREG BIOPHY W NON STRESSo n 12-08-2021 US PREG BIOPHY W NON STRESS EXAMINATION: US PREG BIOPHY W NON STRESS HISTORY: Multigravida of advanced maternal age COMPARISON: No relevant comparison available. TECHNIQUE: Ultrasound biophysical profile was performed in the radiology department. FINDINGS: BREATHING MOVEMENTS: 2.0 GROSS BODY MOVEMENTS: 2.0 TONE: 2.0 QUALITATIVE AMNIOTIC FLUID VOLUME: 2.0 PRESENTATION: CEPHALIC HEART RATE: 145.2 bpm H.B./min AMNIOTIC FLUID VOLUME: 18.1 cm cm GESTATIONAL AGE: 36 weeks 4 days CONCLUSION: Total biophysical profile score: 8.0 Electronically authenticated by: MARCELLE MARTINEZ Date: 2021-12-08 16:05 Normal [facility] GROUP B STREP CULTUREon 11-13 S. agalactiae Ag Ql (Unsp spec) Culture Observations: NEGATIVE FOR GROUP B STREPTOCOCCUS. Normal [facility] Comment on above: Performed By: #### L IVER, BMP, TSH, LIPID #### [facility] [address] [place] [address] Dr. Jensen Mckeon US PREG BIOPHY W NON STRESSo n 12-01-2021 US PREG BIOPHY W NON STRESS EXAMINATION: US PREG BIOPHY W NON STRESS HISTORY: Multigravida of advanced maternal age COMPARISON: Ultrasound biophysical 11/24/2021 TECHNIQUE: Ultrasound biophysical profile was performed. FINDINGS: BREATHING MOVEMENTS: 2.0 GROSS BODY MOVEMENTS: 2.0 TONE: 2.0 QUALITATIVE AMNIOTIC FLUID VOLUME: 2.0 PRESENTATION: CEPHALIC HEART RATE: 124.4 bpm bpm. AMNIOTIC FLUID VOLUME: 17.1 cm GESTATIONAL AGE: 35 weeks 4 days CONCLUSION: Total biophysical profile score 8.0. Electronically authenticated by: SIRENA FRANKS Date: 2021-12-01 17:21 Normal [facility] US PREG BIOPHY W NON STRESSo n 11-24-2021 US PREG BIOPHY W NON STRESS EXAMINATION: US PREG BIOPHY W NON STRESS HISTORY: Multigravida of advanced maternal age COMPARISON: Ultrasound biophysical 11/17/2021 TECHNIQUE: Ultrasound biophysical profile was performed. FINDINGS: BREATHING MOVEMENTS: 2.0 GROSS BODY MOVEMENTS: 2.0 TONE: 2.0 QUALITATIVE AMNIOTIC FLUID VOLUME: 2.0 PRESENTATION: CEPHALIC HEART RATE: 135.7 bpm bpm. AMNIOTIC FLUID VOLUME: 19.5 cm GESTATIONAL AGE: 34 weeks 4 days CONCLUSION: Total biophysical profile score 8.0. Electronically authenticated by: SIRENA FRANKS Date: 2021-11-24 17:26 Normal [facility] US PREG BIOPHY W NON STRESSo n 11-17-2021 US PREG BIOPHY W NON STRESS EXAMINATION: US PREG BIOPHY W NON STRESS HISTORY: Multigravida of advanced maternal age EXAMINATION: US PREG BIOPHY W NON STRESS HISTORY: Multigravida of advanced maternal age COMPARISON: No relevant comparison available. TECHNIQUE: Ultrasound biophysical profile was performed in the radiology department. FINDINGS: BREATHING MOVEMENTS: 2.0 GROSS BODY MOVEMENTS: 2.0 TONE: 2.0 QUALITATIVE AMNIOTIC FLUID VOLUME: 2.0 PRESENTATION: TRANS RT HEART RATE: 150.0 bpm H.B./min AMNIOTIC FLUID VOLUME: 21.8 cm cm GESTATIONAL AGE: 33 weeks 4 days CONCLUSION: Total biophysical profile score: 8.0 Electronically authenticated by: MARCELLE MARTINEZ Date: 2021-11-17 18:19 Normal [facility] US PREG BIOPHY W NON STRESSo n 11-13-2021 US PREG BIOPHY W NON STRESS EXAMINATION: US PREG BIOPHY W NON STRESS HISTORY: Multigravida of advanced maternal age COMPARISON: No relevant comparison available. TECHNIQUE: Ultrasound biophysical profile was performed. FINDINGS: BREATHING MOVEMENTS: 2.0 GROSS BODY MOVEMENTS: 2.0 TONE: 2.0 QUALITATIVE AMNIOTIC FLUID VOLUME: 2.0 PRESENTATION: CEPHALIC HEART RATE: 142.1 bpm bpm. AMNIOTIC FLUID VOLUME: 19.5 cm GESTATIONAL AGE: 32 weeks 6 days CONCLUSION: Total biophysical profile score 8.0. Electronically authenticated by: SIRENA FRANKS Date: 2021-11-13 07:25 Normal [facility] US PREG GROWTHon 10-13-2021 US PREG GROWTH EXAMINATION: US PREG GROWTH HISTORY: Excessive growth affecting management of mother COMPARISON: No relevant comparison available. FINDINGS: Heart Rate: 137.0 bpm Number: 1.0 Position: TRANSVERSE Amniotic Fluid Volume: 17.8 cm Maximum Vertical Pocket: 5.1 cm BIOMETRY: BPD: 7.4 cm cm; 29 weeks 5 days; 74% HC: 27.9 cmcm; 30 weeks 4 days; 77% AC: 27.4 cm cm; 31 weeks 3 days; >97% FL: 5.6 cm cm; 29 weeks 4 days; 66% EFW: 1614.9 grams; 97% FL/AC: 20.6 FL/BPD: 76.2 HC/AC: 1.0 GESTATIONAL AGE: Age by EDC: 28 weeks 4 days LIBERTY by EDC: 01/01/2022 Age by US: 30 weeks, 2 days LIBERTY by US: 12/20/2021 IMPRESSION: 1. Single live intrauterine with growth detailed above. 2. Estimated weight is at 97th percentile. Electronically authenticated by: SIRENA FRANKS Date: 2021-10-13 09:49 Normal [facility] GTT 3 HR PREGon 09-10-2021 Glucose [Mass/Vol] 82 mg/dL Normal 74-106 [facility] Comment on above: Performed By: #### G TT3P #### [facility] [address] [address] [address] Jensen Mckeon Glucose [Mass/Vol] 123 mg/dL Normal [facility] Comment on above: Performed By: #### G TT3P #### [facility] [address] [address] [address] Jensen Mckeon Glucose [Mass/Vol] 104 mg/dL Normal [facility] Comment on above: Performed By: #### G TT3P #### [facility] [address] [place] [address] Dr. Jensen Mckeon Glucose [Mass/Vol] 76 mg/dL Normal [facility] Comment on above: Performed By: #### G TT3P #### [facility] [address] [place] [address] Dr. Jensen Mckeon GLUCOSE - 1HRon 09-04-2021 Glucose [Mass/Vol] 150 mg/dL Critically high 74-106 [facility] Comment on above: Performed By: #### L IVER, BMP, TSH, LIPID #### [facility] [address] [place] [address] Dr. Jensen Mckeon HEMOGRAM AND PLATELon 2021 Hematocrit (Bld) [Volume fraction] 31.9 % Critically low 36.0-48.0 [facility] Comment on above: Performed By: #### H H #### [facility] [address] [place] [address] Dr. Jensen Mckeon Hemoglobin (Bld) [Mass/Vol] 10.5 g/dL Critically low 12.0-16.0 [facility] Comment on above: Performed By: #### H H #### [facility] [address] [place] [address] Dr. Jensen Mckeon MCH (RBC) [Entitic mass] 28.8 pg Normal 26.7-34.0 [facility] Comment on above: Performed By: #### H H #### [facility] [address] [place] [address] Dr. Jensen Mckeon MCHC (RBC) [Mass/Vol] 32.9 g/dL Normal 29.9-35.2 [facility] Comment on above: Performed By: #### H H #### [facility] [address] [place] [address] Dr. Jensen Mckeon MCV (RBC) [Entitic vol] 87.6 fL Normal 81.0-99.0 [facility] Comment on above: Performed By: #### H H #### [facility] [address] [place], [place] [address] Dr. Jensen Mckeon PLT 321 103/ul Normal 150-450 [facility] Comment on above: Performed By: #### H H #### [facility] [address] [address] [address] Jensen Mckeon RBC 3.64 106/ul Critically low 4.20-5.40 [facility] Comment on above: Performed By: #### H H #### [facility] [id number] Jensen Mckeon WBC 11.6 103/ul Critically high 4.0-11.0 [facility] Comment on above: Performed By: #### H H #### [facility] [id number] Jensen Mckeon US PREG PLACENTAon 2 US PREG PLACENTA EXAMINATION: US PREG PLACENTA HISTORY: Low lying placenta follow-up COMPARISON: Ultrasound anatomy 08/15/2021 FINDINGS: PLACENTA: Anterior with lower margin 5.8 cm from os. CERVIX LENGTH: 4.8 cm; closed. HEART RATE: 148 bpm OTHER: None. IMPRESSION: 1. Anterior placenta which is no longer low-lying. Electronically authenticated by: SIRENA FRANKS Date: 2021-09-04 16:31 Normal [facility] US PREG ANATOMY SINGLEon US PREG ANATOMY SINGLE EXAMINATION: US PREG ANATOMY SINGLE HISTORY: anatomy study COMPARISON: No relevant comparison available. TECHNIQUE: Transabdominal sonographic examination was performed for obstetrical and evaluation. FINDINGS: Number: 1 Heart Rate: 148 H.B. /min Amniotic Fluid Volume: Subjectively normal position: Transverse presentation and lie Placental Location: Anterior, grade 0. Placental edge 2.4 cm from the internal os Cervix Length: 5 cm, closed Normal structures: Cerebellum. Choroid plexus. Cisterna magna. Lateral cerebral ventricles. Orbits. Midline falx. Hard palate. 4-chamber heart. RVOT. LVOT. Stomach. Kidneys. Bladder. Umbilical cord insertion into abdomen. 3 vessel cord. Cervical spine. Thoracic spine. Lumbar spine. Sacral spine. Right upper extremity. Left upper extremity. Right lower extremity. Left lower extremity. Suboptimally seen: None. Abnormalities/Other: None BIOMETRY: BPD: 4.7 cm 20 weeks 1 days HC: 17.5 cm 20 weeks 0 days AC: 15.8 cm 20 weeks 6 days FL: 3.6 cm 21 weeks 2 days EFW:14 ounces, 69% by ultrasound, 88% by expected EDC; FL/AC: 0.941290 FL/BPD: 0.506202 HC/AC: 1.212902 GESTATIONAL AGE: Age by EDC: 20 weeks 1 day LIBERTY by EDC: 01/01/2022 Age by current US: 20 weeks 4 days LIBERTY by current US: 12/29/2021 IMPRESSION: Low lying placenta, otherwise normal anatomy scan *Reference: [employer] Practice Guideline for the performance of Obstetric Ultrasound Examinations, March 14, 2007. Electronically authenticated by: MARCELLE MARTINEZ Date: 2021-08-15 10:06 [facility] Vital Signs Date Time Vital Sign Value Performing Clinician Rogelioi lity 07-27-2023 15:28-0500 Body mass index (BMI) [Ratio] 28.42 kg/m2 Tami Vi DO Work Phone: [facility] 07-27-2023 15:28-0500 Body weight 70.49 kg Tami Vi DO Work Phone: [facility] 07-27-2023 15:28-0500 Diastolic blood pressure 74 mm[Hg] Tami Vi DO Work Phone: [facility] 07-27-2023 15:28-0500 Systolic blood pressure 114 mm[Hg] Tami Vi DO Work Phone: [facility] Encounters Encounter Date Encounter Type Care Provider Facility Start: 09-02-2023 End: 09-02-2023 ambulatory TAMI VI Not Available Start: 07-27-2023 End: 07-27-2023 ambulatory TAMI VI Not Available Start: 07-27-2023 End: 07-27-2023 Patient encounter procedure Tami Vi DO Work Phone: [facility] Work Phone: Start: 07-27-2023 End: 07-27-2023 Periodic preventive med est patient 18-39 yrs Tami Vi DO Work Phone: [facility] Comment on above: Well woman exam with routine gynecological exam; Dyspareunia in female; Hypertrophy of labia Start: 07-14-2023 Patient encounter procedure Tami Vi DO Work Phone: [facility] Work Phone: Start: 07-14-2023 End: 07-14-2023 ambulatory ASHER FULLER Not Available Start: 07-21-2022 End: 07-21-[address] TAMI LEBRON Facility:[facility] Start: 04-12-2022 Encounter for genera l adult medical examination without abnormal findings DR ASHER FULLER [facility] Start: 04-09-2022 End: 04-10-[address] ASHER FULLER Facility:[facility] Start: 04-09-2022 End: 04-10-2022 Encounter for general adult medical examination without abnormal findings DR ASHER FULLER Facility:[facility] Start: 01-06-2022 End: 01-06-[address] TAMI LEBRON Facility:[facility] Start: 12-25-2021 End: 12-27-2021 Evaluation and management of inpatient DR TAMI LEBRON Facility:[facility] Start: 12-22-2021 End: 12-22-[address] TAMI LEBRON Facility:[facility] Start: 12-17-2021 End: 12-17-[address] SEDA RODRIGUEZ Facility:[facility] Start: 12-16-2021 End: 12-16-[address] SEDA RODRIGUEZ Facility:[facility] Start: 12-08-2021 End: 12-08-[address] MARCELLE MARTINEZ Facility:[facility] Start: 12-02-2021 End: 12-02-[address] TAMI LEBRON Facility:[facility] Start: 12-01-2021 End: 12-01-[address] SEDA RODRIGUEZ Facility:[facility] Start: 11-24-2021 End: 11-24-[address] SEDA RODRIGUEZ Facility:[facility] Start: 11-17-2021 End: 11-17-[address] SEDA RODRIGUEZ Facility:[facility] Start: 11-15-2021 End: 11-15-[address] SEDA RODRIGUEZ Facility:[facility] Start: 11-12-2021 End: 11-12-[address] TAMI LEBRON Facility:[facility] Start: 10-13-2021 End: 10-14-[address] TAMI LEBRON Facility:[facility] Start: 09-10-2021 End: 09-11-[address] TAMI LEBRON Facility:[facility] Start: 09-04-2021 End: 09-05-[address] TAMI LEBRON Facility:[facility] Start: 08-15-2021 End: 08-16-[address] MARCELLE MARTINEZ Facility:[facility] Procedures Date Procedure Procedure Detail Performing Clinician Start: 12-25-2021 Extraction of Produc ts of Conception, Low Cervical, Open Approach DR TAMI LEBRON Plan of Treatment Date Care Activity Detail Author Start: 09-02-2023 End: 09-02-2023 Patient encounter procedure 09/02/2023 9:50 AM EDT Consult [facility] [address] [place] [address] Tami Lebron, DO [address] [place] [address] [facility] Start: 02-12-2023 Influenza vaccination Influenza Vacc ine (#1) [facility] Start: 2014 Screening for malign ant neoplasm of cervix [facility] Start: 2005 Screening for malign ant neoplasm of cervix Pap Smear [facility] Cytology Cervical or vaginal smear or scraping study Pap Smear Pathology and Cytology Routine Well woman exam with routine gynecological exam Ordered: 07/27/2023 [facility] Work Phone: Comment on above: Ordered: 07/27/2023 Human papilloma viru s DNA [Presence] in Unspecified specimen by Probe with amplification HPV DNA probe, amplified Microbiology Routine Well woman exam with routine gynecological exam Ordered: 07/27/2023 [facility] Comment on above: Ordered: 07/27/2023 Payers Date Payer Category Payer Unknown BCBS BCBS xxxxxx [id number] 2021-[facility] [id number] [place] [id number] 1984 Unknown [id number] [id number] 1984 Unknown [id number] 2.16.840.1.230408.3.579.2.593 1984 Unknown [id number] 2.16.840.1.426601.3.579.2.593 1984 Unknown [id number] 2.16.840.1.077237.3.579.2.593 1984 Unknown [id number] 2.16.840.1.215332.3.579.2.593 1984 Unknown [id number] 2.16.840.1.388152.3.579.2.593 1984 Unknown [id number] 2.16.840.1.318558.3.579.2.593 1984 Unknown [id number] 2.16.840.1.793091.3.579.2.593 1984 Unknown [id number] 2.16.840.1.356360.3.579.2.593 1984 Unknown [id number] 2.16.840.1.136540.3.579.2.593 1984 Unknown [id number] 2.16.840.1.473377.3.579.2.593 1984 Unknown [id number] 2.16.840.1.020960.3.579.2.593 1984 Unknown [id number] 2.16.840.1.602668.3.579.2.593 1984 Unknown [id number] 2.16.840.1.310513.3.579.2.593 1984 Unknown [id number] 2.16.840.1.995982.3.579.2.593 1984 Unknown [id number] 2.16.840.1.390223.3.579.2.593 1984 Unknown [id number] 2.16.840.1.701701.3.579.2.593 1984 Unknown [id number] 2.16.840.1.661415.3.579.2.593 1984 Unknown [id number] 2.16.840.1.128066.3.579.2.1259 1984 Unknown [id number] 2.16.840.1.379504.3.579.2.1259 1984 Unknown [id number] 2.16.840.1.399001.3.579.2.1259 1959 Unknown [id number] Social History Date Type Detail Facility Start: 07-14-2023 Tobacco smoking status MTIS Never sm oked tobacco [facility] Start: 07-14-2023 Tobacco use and exposure Smoke less tobacco non-user [facility] Start: 07-27-2023 Alcohol intake Current drinke r of alcohol (finding) [facility] Start: 06-25-2023 End: 07-14-2023 History of Social function [facility] Start: 06-25-2023 End: 07-14-2023 Humiliation, Afraid, Rape, and Kick questionnaire [HARK] [facility] Within the last year , have you been afraid of your partner or ex-partner? No [facility] Do you belong to any clubs or organizations such as christianity groups, unions, fraternal or athletic groups, or school groups? Yes [facility] Are you now , , , , never or living with a partner? [facility] How often to you hav e a drink containing alcohol? 2-4 times a month [facility] How many standard dr inks containing alcohol do you have on a typical day? 1 or 2 [facility] How often do you hav e 6 or more drinks on 1 occasion? Never [facility] How hard is it for y ou to pay for the very basics like food, housing, medical care, and heating Not hard at all [facility] Do you feel stress - tense, restless, nervous, or anxious, or unable to sleep at night because your mind is troubled all the time - these days [OSQ] Only a little [facility] (I/We) worried wheth er (my/our) food would run out before (I/we) got money to buy more. Never true [facility] Start: 07-01-2023 Alcohol Comment occasional [facility] Start: 1985 Sex Assigned At Female [facility] Start: 06-16-2023 Gender identity Identifies as female gender (finding) [facility] History of Present illness Narrative 07-27-2023 Estephanie Esparza, [employer]PORATE [employer] MECH[employer]IC - 07/27/2023 3:00 PM EST Note Date & Type Note Facility 07-27-2023 History of Presen t illness Narrative Reason for Appointment: Patient ID: Emily Pruitt is a 37 y.o. female who presents for [facility] Women Visit Patient presents today for Annual Exam appointment. Current Medications: currently has no medications in their medication list. Medical History: Active Ambulatory Problems Diagnosis Date Noted Asthma ([facility]) 07/14/2023 Genital herpes 07/14/2023 Recurrent major depression in remission ([facility]) ([facility]) 07/14/2023 Plantar fasciitis, left 07/14/2023 Annual physical exam 07/14/2023 Stress reaction 07/14/2023 Resolved Ambulatory Problems Diagnosis Date Noted No Resolved Ambulatory Problems Past Medical History: Diagnosis Date BMI 26.0-26.9,adult GERD (gastroesophageal reflux disease) H/O bronchitis MDD (recurrent major depressive disorder) in remission (HCC) ([facility]) Reactive airway disease ([facility]) Seasonal allergies Varicose veins of legs Varicose veins of legs Family History Problem Relation Name Age of Onset Other (Chronic sinusitis) Mother Hypertension Father No Known Problems Brother Cancer Maternal Grandmother Other (Blood disorder (ITP)) Maternal Grandfather Hypertension Paternal Grandmother Dementia Paternal Grandmother Diabetes Paternal Grandmother Heart disease Paternal Grandfather Heart attack Paternal Grandfather No Known Problems Daughter 3 daughters, healthy Social History Tobacco Use Smoking status: Never Smokeless tobacco: Never Substance Use Topics Alcohol use: Yes Comment: occasional Drug use: Never Past Surgical History: Procedure Laterality Date SECTION, LOW TRANSVERSE 12/25/2021 SECTION, LOW TRANSVERSE 02/27/2019 SECTION, LOW TRANSVERSE 05/26/2017 EYE SURGERY WISDOM TOOTH EXTRACTION Allergies Allergen Reactions Ketorolac Memory loss, metallic taste, itchiness Ketorolac Tromethamine Sulfa Antibiotics Other Reaction(s): hives Wound Dressing Adhesive Review of Systems: Review of Systems Constitutional: Negative. HENT: Negative. Eyes: Negative. Respiratory: Negative. Cardiovascular: Negative. Gastrointestinal: Negative. Genitourinary: Negative. Musculoskeletal: Negative. Skin: Negative. Neurological: Negative. All other systems reviewed and are negative. Hematological: Negative. Endocrine: Negative. Allergic/Immunologic: Negative. Objective Physical Exam Constitutional: Appearance: Normal appearance. She is well-developed. Genitourinary: Vulva normal. Breasts: Breasts are soft. Right: Normal. Left: Normal. Cardiovascular: Rate and Rhythm: Normal rate and regular rhythm. Pulmonary: Effort: Pulmonary effort is normal. Breath sounds: Normal breath sounds. Abdominal: General: Bowel sounds are normal. There is no distension. Palpations: Abdomen is soft. Tenderness: There is no abdominal tenderness. There is no guarding or rebound. Musculoskeletal: General: No swelling. Normal range of motion. Right lower leg: No edema. Left lower leg: No edema. Neurological: Mental Status: She is alert and oriented to person, place, and time. Skin: General: Skin is warm and dry. Psychiatric: Mood and Affect: Mood normal. Behavior: Behavior normal. Vitals and nursing note reviewed. Exam conducted with a programming development project manager present. Vitals: Estimated body mass index is 28.42 kg/m as calculated from the following: Height as of 07/14/23: 5' 2 . Weight as of this encounter: 155 lb 6.4 oz. BP: 114/74 No LMP recorded. Assessment/Plan Encounter Diagnoses Name Primary? Well woman exam with routine gynecological exam Dyspareunia in female Hypertrophy of labia Patient presents today for an annual exam. Patient states she is doing well and has complaints of painful intercourse and labial hypertrophy- on right side -repair from vaginal delivery tear healed unevenly. Pt to be scheduled for right labioplasty with skin tag removal. Pap was obtained without difficulty. Follow Up: Patient is to return in one year for annual unless needed otherwise. Documented by Estephanie Esparza LPN on behalf of: Tami Lebron DO documented in this encounter [facility] Clinical Note 12-25-2021 Note Date & Type Note Facility 12-25-2021 Note OPERATIVE NOTE OPERATION DATE: 12/25/2021 PROCEDURE: Repeat low transverse section. PREOPERATIVE DIAGNOSIS: 1. Intrauterine at 39 weeks. 2. Previous . POSTOPERATIVE DIAGNOSIS: 1. Intrauterine at 39 weeks. 2. Previous . ANESTHESIA: Spinal with Duramorph. SURGEON: Tami Lebron D.O. INTEGRATION LEAD: GABRIEL Nesbitt URINE OUTPUT: Yellow and clear. BLOOD LOSS: 575 mL. SPECIMEN: Placenta. FINDINGS: Viable female. Apgars and weight unknown at this time. PROCEDURE: Patient was taken back to the Operating Room where she was given a spinal anesthesia with Duramorph without difficulty. She was prepped and draped in the normal sterile fashion. A Pfannenstiel skin incision was then made 2 cm above the symphysis pubis and carried down to underlying rectus fascia using a Bovie. The fascia was incised in the midline and extended laterally using Chou scissors. Two Charu clamps were placed on the superior aspect of the fascia and dissected off the underlying rectus muscles. The same was performed on the inferior aspect as well. The muscles were then in the midline. Peritoneum was identified and entered bluntly. The peritoneum was then extended superiorly and inferiorly with good visualization of the bladder. The bladder blade was inserted. A low transverse incision was made on the patient's uterus and extended laterally digitally. The was then delivered atraumatically after the bladder blade was removed in the cephalic position. The cord was clamped and cut. Cord blood was obtained. The was handed off to awaiting team. The patient's placenta was spontaneously delivered. The uterus was then exteriorized. The uterus was cleared of all clots and debris. The bladder blade was reinserted. The patient's uterine incision was closed using #0 Vicryl in a running lock fashion. Excellent hemostasis was assured. The uterus was then returned to the patient's abdomen. The patient's abdomen was copiously irrigated using warm saline. Peritoneal gutters were cleared of all clots and debris. Again excellent hemostasis was assured. The patient's peritoneum was closed using 3-0 Vicryl in a running fashion. The patient's fascia was closed using #0 Vicryl in a running fashion. The patient's skin was closed using 4-0 Vicryl subcuticularly. The patient tolerated the procedure well. Sponge, lap, and needle counts were correct x2. The patient was taken to the Recovery Room in stable condition. [facility] Signed and Approved by: DR TAMI LEBRON . 12/27/2021 11:59:00 [facility] Discharge summary note 12-25-2021 Note Date & Type Note Facility 12-25-2021 Note DISCHARGE SUMMARY DISCHARGE DATE: 01/03/2022 PRIMARY DIAGNOSES: 1. Intrauterine 39 weeks. 2. Previous . PROCEDURE: Repeat low transverse section. HOSPITAL COURSE: As expected. Please see chart for full details. LABORATORY DATA: Please see chart. COMPLICATIONS: None. DISCHARGE CONDITION: Stable. CONSULTATION: Anesthesia. DISCHARGE INSTRUCTIONS: 1.Diet: Regular. 2.Medications: a.Percocet 5/325 one to two p.o. every 4-6 hours p.r.n. pain. b.Motrin 800 one p.o. every 8 hours p.r.n. pain. 3.Followup in one week. Restrictions: Pelvic rest for 6 weeks. No heavy lifting. May drive when pain free and no longer on narcotics. [facility] Evaluation note Note Date & Type Note Facility Evaluation note Diagnosis Well woman exam with routine gynecological exam Routine gynecological examination Dyspareunia in female Hypertrophy of labia documented in this encounter [facility] Summary Purpose Family History No Family History Records FoundNo Family History Records Found Advance Directives No Advanced Directives Records FoundNo Advanced Directives Records Found Additional Source Comments INFORMATION SOURCE (unrecogn ized section and content) DATE CREATED AUTHOR 07/28/2022 [facility] DATE CREATED AUTHOR AUTHOR'S ORGANIZ ATION 09/03/2023 [facility] EPIC Reason for Visit (unrecogniz ed section and content) Reason Comments Well Women Visit Care Teams (unrecognized sec tion and content) Senior Net Web Developer Relationship Specialty Start Date End Date Asher Fuller MD [address] [place] [address] PCP - General Family Medicine 07/27/23 FOR RECORDS PERTAINING TO PATIENTS WHO ARE OR HAVE BEEN ENROLLED IN A CHEMICAL DEPENDENCY/SUBSTANCEABUSE PROGRAM, SOME INFORMATION MAY BE OMITTED. This clinical summary was aggregated from multiple sources. Caution should be exercised in using it in the provision of clinical care. This summary normalizes information from multiple sources, and as a consequence, information in this document may materially change the coding, format and clinical context of patient data. In addition, data may be omitted in some cases. CLINICAL DECISIONS SHOULD BE BASED ON THE PRIMARY CLINICAL RECORDS. [facility] [employer] [facility]. provides no warranty or guarantee of the accuracy or completeness of information in this document.
== END 2023-09-21 10:01 | disposition home or self-care (01) ==
LOC: PST 10:01
PROVIDERS: PCP Family Medicine; Visit Provider Obstetrics & Gynecology
DX: Z01.818 Encounter for other preprocedural examination (principal); N94.10 Unspecified dyspareunia; N90.69 Other specified hypertrophy of vulva

== ENCOUNTER 2023-10-01 09:59 | Day surgery (SDC) | payer BC, SELFPAY ==
[2023-09-21 10:26] VITALS: BP 117/70; PULSE 69; TEMP 36.3; O2SAT 99; BMI 27.4
[2023-10-01] VITALS (11 sets, daily range): BP systolic 103–132; BP diastolic 41–84; PULSE 67–107; TEMP 35.9–36.8; O2SAT 97–99
--- OUTSIDE RECORDS SUMMARY | 2023-10-01 10:06 | XMS_ITS | CCD ---
Author Organization [facility] Care Team Providers Care Digital Business Analyst Name Role Phone VI, DR GARRETT Admitting [...] MARCELLE Minor Consulting Unavailable JUANCARLOS, DR STEWART [facility] Unavailable VI, DR GARRETT Attending Unavailable VI, DR GARRETT Admitting Unavailable VI, DR GARRETT Consulting Unavailable KARASIK, DR STACK Consulting Unavailable KARASIK, DR STACK Attending Unavailable KARASIK, DR STACK Admitting Unavailable JUANCARLOS, DR STEWART [facility] Unavailable VI, DR GARRETT Consulting Unavailable ZIEBER, DR SIRENA Butler Consulting Unavailable KARASIK, DR STACK Consulting Unavailable JUANCARLOS, DR STEWART [facility] Unavailable KARASIK, DR STACK Attending Unavailable KARASIK, DR STACK Admitting Unavailable ZIEBER, DR SIRENA Butler Consulting Unavailable KARASIK, DR STACK Consulting Unavailable KARASIK, DR STACK Attending Unavailable KARASIK, DR STACK Admitting Unavailable JUANCARLOS, DR STEWART [facility] Unavailable VI, DR GARRETT Consulting Unavailable ZIEBER, DR SIRENA Butler Consulting Unavailable KARASIK, DR STACK Consulting Unavailable KARASIK, DR STACK Attending Unavailable KARASIK, DR STACK Admitting Unavailable JUANCARLOS, DR STEWART [facility] Unavailable VI, DR GARRETT Consulting Unavailable ZIEBER, DR SIRENA Butler Consulting Unavailable VI, DR GARRETT Admitting Unavailable VI, DR GARRETT Attending Unavailable JUANCARLOS, DR STEWART [facility] Unavailable WEST, DR MARCELLE Minor Consulting Unavailable VI, DR GARRETT Consulting Unavailable VI, DR GARRETT Consulting Unavailable JUANCARLOS, DR STEWART [facility] Unavailable VI, DR GARRETT Attending Unavailable VI, DR GARRETT Admitting Unavailable ZIEBER, DR SIRENA Butler Consulting Unavailable KARASIK, DR STACK Consulting Unavailable JUANCARLOS, DR STEWART [facility] Unavailable VI, DR GARRETT Attending Unavailable VI, DR GARRETT Admitting Unavailable VI, DR GARRETT Consulting Unavailable JUANCARLOS, DR STEWART [facility] Unavailable VI, DR GARRETT Attending Unavailable VI, DR GARRETT Admitting Unavailable ZIEBER, DR SIRENA Butler Consulting Unavailable Asher Fuller MD Primary Care Provider [phone] ASHER FULLER Attending Unavailable VI, TAMI Attending Unavailable VI, TAMI Attending Unavailable Allergies Allergy Classification Reported Allergen(s) Allergy Type Date of Onset Reaction(s) Facility (1 source) Cefadroxil Drug Allergy [facility] ([facility] source) Ketorolac Drug Allergy [facility] (1 source) Sulfamethoxazole Drug Allergy [facility] (2 sources) Ketorolac Propensity to adverse reactions 11-05-19 [facility] (2 sources) Ketorolac trometamol Allergy to substance 06-25-19 [facility] (2 sources) Sulfonamides (Antibiotic) Drug Allergy 06-25-19 [facility] (2 sources) Wound Dressing Adhesive Drug Allergy 06-25-19 [facility] Problems Active Problems Problem Classification [...] 29 to 64on 07-28-2022 . . Normal [facility] Comment on above: Result Comment: Perf ormed at: WB Performed By: #### [id number] #### [facility] [address] [place] [address] Dr. Jensen Mckeon Age Gdln ACOG Testing Normal [facility] Comment on above: Performed By: #### [id number] #### [facility] [address] [address] [address] Jensen Mckeon DIAGNOSIS: Comment Normal [facility] Comment on above: Result Comment: NEGA TIVE FOR INTRAEPITHELIAL LESION OR MALIGNANCY. Performed at: WB Performed By: #### [id number] #### [facility] [address] [address] [address] Jensen Mckeon HPV Aptima Negative Normal Negative [facility] Comment on above: Result Comment: This nucleic acid amplification test detects fourteen high-risk HPV types (16,18,31,33,35,39,45,51,52,56,58,59,66,68) without differentiation. Performed at: =G Performed By: #### [id number] #### [facility] [address] [place] [address] Dr. Jensen Mckeon HPV Genotype Reflex Comment Normal [facility] Comment on above: Result Comment: Crit eria not met, HPV Genotype not performed. Performed at: WB Performed By: #### [id number] #### [facility] [address] [place] [address] Dr. Jensen Mckeon Methodology: CTIM Normal [facility] Comment on above: Result Comment: The Thin Prep(R) Human Development Professor was unable to read this specimen. Therefore a manual review was performed. Performed at: WB Performed By: #### [id number] #### [facility] [address] [place] [address] Dr. Jensen Mckeon Note: Comment Normal [facility] Comment on above: Result Comment: The Pap smear is a screening test designed to aid in the detection of premalignant and malignant conditions of the uterine cervix. It is not a diagnostic procedure and should not be used as the sole means of detecting cervical cancer. Both false-positive and false-negative reports do occur. . Performed at: WB Performed By: #### [id number] #### [facility] [address] [place] [address] Dr. Jensen Mckeon Performed by: Comment Normal [facility] Comment on above: Result Comment: Yo Garcia, Casing Machine Operator (ASCP) Performed at: WB Performed By: #### [id number] #### [facility] [address] [place] [address] Dr. Jensen Mckeon Specimen adequacy: Comment Normal [facility] Comment on above: Result Comment: Sati sfactory for evaluation. Endocervical and/or squamous metaplastic cells (endocervical component) are present. Performed at: WB Performed By: #### [id number] #### [facility] [address] [place] [address] Dr. Jensen Mckeon CBC AUTO DIFFon 04-09-2022 BASO # 0.1 103/ul Normal 0.0-0.1 [facility] Comment on above: Performed By: #### L IVER, BMP, TSH, LIPID #### [facility] [address] [place] [address] Dr. Jensen Mckeon Basophils/100 WBC (Bld) 0.7 % Normal 0.2-2.0 [facility] Comment on above: Performed By: #### L IVER, BMP, TSH, LIPID #### [facility] [address] [place] [address] Dr. Jensen Mckeon EO # 0.3 103/ul Normal 0.0-0.7 [facility] Comment on above: Performed By: #### L IVER, BMP, TSH, LIPID #### [facility] [address] [place] [address] Dr. Jensen Mckeon Eosinophils/100 WBC (Bld) 4.0 % Normal 0.9-7.0 [facility] Comment on above: Performed By: #### L IVER, BMP, TSH, LIPID #### [facility] [address] [place] [address] Dr. Jensen Mckeon Erythrocyte distribution width (RBC) [Ratio] 14.6 % Normal 11.0-15.0 [facility] Comment on above: Performed By: #### L IVER, BMP, TSH, LIPID #### [facility] [address] [place] [address] Dr. Jensen Mckeon Hematocrit (Bld) [Volume fraction] 39.7 % Normal 36.0-48.0 [facility] Comment on above: Performed By: #### L IVER, BMP, TSH, LIPID #### [facility] [address] [place] [address] Dr. Jensen Mckeon Hemoglobin (Bld) [Mass/Vol] 12.8 g/dL Normal 12.0-16.0 [facility] Comment on above: Performed By: #### L IVER, BMP, TSH, LIPID #### [facility] [address] [address] [address] Jensen Mckeon IG # 0.02 10e3/ul Normal 0.00-0.03 [facility] Comment on above: Performed By: #### L IVER, BMP, TSH, LIPID #### [facility] [address] [place] [address] Dr. Jensen Mckeon IG % 0.3 % Normal 0.0-0.5 [facility] Comment on above: Performed By: #### L IVER, BMP, TSH, LIPID #### [facility] [address] [place] [address] Dr. Jensen Mckeon LYMPH # 1.2 103/ul Normal 1.2-3.8 [facility] Comment on above: Performed By: #### L IVER, BMP, TSH, LIPID #### [facility] [address] [place] [address] Dr. Jensen Mckeon Lymphocytes/100 WBC (Bld) 15.7 % Critically low 20.5-60.0 [facility] Comment on above: Performed By: #### L IVER, BMP, TSH, LIPID #### [facility] [address] [place] [address] Dr. Jensen Mckeon MANUAL DIFF REQ NO Normal [facility] Comment on above: Performed By: #### L IVER, BMP, TSH, LIPID #### [facility] [address] [place] [address] Dr. Jensen Mckeon MCH (RBC) [Entitic mass] 26.7 pg Normal 26.7-34.0 [facility] Comment on above: Performed By: #### L IVER, BMP, TSH, LIPID #### [facility] [address] [place] [address] Dr. Jensen Mckeon MCHC (RBC) [Mass/Vol] 32.2 g/dL Normal 29.9-35.2 [facility] Comment on above: Performed By: #### L IVER, BMP, TSH, LIPID #### [facility] [address] [place] [address] Dr. Jensen Mckeon MCV (RBC) [Entitic vol] 82.9 fL Normal 81.0-99.0 [facility] Comment on above: Performed By: #### L IVER, BMP, TSH, LIPID #### [facility] [address] [place] [address] Dr. Jensen Mckeon MONO # 0.7 103/ul Normal 0.3-0.8 [facility] Comment on above: Performed By: #### L IVER, BMP, TSH, LIPID #### [facility] [address] [place] [address] Dr. Jensen Mckeon Monocytes/100 WBC (Bld) 9.2 % Normal 1.7-12.0 [facility] Comment on above: Performed By: #### L IVER, BMP, TSH, LIPID #### [facility] [address] [place] [address] Dr. Jensen Mckeon NEUT # 5.3 103/ul Normal 1.4-6.5 [facility] Comment on above: Performed By: #### L IVER, BMP, TSH, LIPID #### [facility] [address] [place] [address] Dr. Jensen Mckeon Neutrophils/100 WBC (Bld) 70.1 % Normal 43.0-75.0 [facility] Comment on above: Performed By: #### L IVER, BMP, TSH, LIPID #### [facility] [address] [place] [address] Dr. Jensen Mckeon Platelet mean volume (Bld) [Entitic vol] 9.1 fL Critically low 9.5-13.5 [facility] Comment on above: Performed By: #### L IVER, BMP, TSH, LIPID #### [facility] [address] [place] [address] Dr. Jensen Mckeon PLT 310 103/ul Normal 150-450 [facility] Comment on above: Performed By: #### L IVER, BMP, TSH, LIPID #### [facility] [address] [place] [address] Dr. Jensen Mckeon RBC 4.79 106/ul Normal 4.20-5.40 [facility] Comment on above: Performed By: #### L IVER, BMP, TSH, LIPID #### [facility] [address] [address] [address] Jensen Mckeon WBC 7.5 103/ul Normal 4.0-11.0 [facility] Comment on above: Performed By: #### L IVER, BMP, TSH, LIPID #### [facility] [address] [address] [address] Jensen Mckeon GLYCOHEMOGLOBIN A1Con 2021 ADA RECOMMENDATION SEE BELOW Normal [facility] Comment on above: Result Comment: ADA RECOMMENDED LIMIT 4.0 - 6.0 ADA THERAPEUTIC TARGET < 7.0 ACTION SUGGESTED > 7.0 Performed By: #### L IVER, BMP, TSH, LIPID #### [facility] [address] [address] [address] Jensen Mckeon Glucose [Mass/Vol] 123 mg/dL Normal [facility] Comment on above: Performed By: #### L IVER, BMP, TSH, LIPID #### [facility] [address] [address] [address] Jensen Mckeon HbA1c (Bld) [Mass fraction] 5.9 % Normal 4.5-6.2 [facility] Comment on above: Performed By: #### L IVER, BMP, TSH, LIPID #### [facility] [address] [place] [address] Dr. Jensen Mckeon LIPID PROFILEon 04-09-2022 CHOL-HDL RATIO NORM SEE BELOW Normal [facility] Comment on above: Result Comment: 3.3 - 4.4 LOW RISK 4.4 - 7.1 AVERAGE RISK 7.1 - 11.0 MODERATE RISK >11.0 HIGH RISK Performed By: #### L IVER, BMP, TSH, LIPID #### [facility] [address] [address] [address] Jensen Mckeon Cholesterol [Mass/Vol] 174 mg/dL Normal <=200 [facility] Comment on above: Performed By: #### L IVER, BMP, TSH, LIPID #### [facility] [address] [address] [address] Jensen Mckeon Cholesterol in HDL [Mass/Vol] 75 mg/dL Critically high 40-60 [facility] Comment on above: Performed By: #### L IVER, BMP, TSH, LIPID #### [facility] [address] [address] [address] Jensen Mckeon Cholesterol in LDL [Mass/Vol] 86.0 mg/dL Normal [facility] Comment on above: Performed By: #### L IVER, BMP, TSH, LIPID #### [facility] [address] [address] [address] Jensen Mckeon Cholesterol.total/Cho lesterol in HDL [Mass ratio] 2.3 {ratio} Normal [facility] Comment on above: Performed By: #### L IVER, BMP, TSH, LIPID #### [facility] [address] [address] [address] Jensen Mckeon HDL NORMAL > or = 60 mg/dl - LO W CARDIOVASCULAR RISK <40 mg/dl - HIGH CARDIOVASCULAR RISK Normal [facility] Comment on above: Performed By: #### L IVER, BMP, TSH, LIPID #### [facility] [address] [place] [address] Dr. Jensen Mckeon LDL CALC NORMAL SEE BELOW Normal [facility] Comment on above: Result Comment: <100 mg/dl OPTIMAL 100 - 129 mg/dl NEAR OR ABOVE OPTIMAL 130 - 159 mg/dl BORDERLINE HIGH 160 - 189 mg/dl HIGH >190 mg/dl VERY HIGH Performed By: #### L IVER, BMP, TSH, LIPID #### [facility] [address] [address] [address] Jensen Mckeon Triglyceride [Mass/Vol] 65 mg/dL Normal <=150 [facility] Comment on above: Performed By: #### L IVER, BMP, TSH, LIPID #### [facility] [address] [address] [address] Jensen Mckeon VLDL CALC 13.0 mg/dL Normal [facility] Comment on above: Performed By: #### L IVER, BMP, TSH, LIPID #### [facility] [address] [address] [address] Jensen Mckeon LIVER PROFILEon 04-09-2022 Albumin [Mass/Vol] 3.9 g/dL Normal 3.4-5.0 [facility] Comment on above: Performed By: #### L IVER, BMP, TSH, LIPID #### [facility] [address] [place] [address] Dr. Jensen Mckeon Albumin/Globulin [Mass ratio] 1.0 {ratio} Normal [facility] Comment on above: Performed By: #### L IVER, BMP, TSH, LIPID #### [facility] [address] [place] [address] Dr. Jensen Mckeon ALP [Catalytic activity/Vol] 94 U/L Normal 46-116 [facility] Comment on above: Performed By: #### L IVER, BMP, TSH, LIPID #### [facility] [address] [place] [address] Dr. Jensen Mckeon ALT [Catalytic activity/Vol] 40 U/L Normal 14-59 [facility] Comment on above: Performed By: #### L IVER, BMP, TSH, LIPID #### [facility] [address] [place] [address] Dr. Jensen Mckeon AST [Catalytic activity/Vol] 22 U/L Normal 15-37 [facility] Comment on above: Performed By: #### L IVER, BMP, TSH, LIPID #### [facility] [address] [place] [address] Dr. Jensen Mckeon BILI, CONJUGATED 0.1 mg/dL Normal 0.0-0.[address] [facility] Comment on above: Performed By: #### L IVER, BMP, TSH, LIPID #### [facility] [address] [place] [address] Dr. Jensen Mckeon Bilirubin [Mass/Vol] 0.2 mg/dL Normal 0.2-1.0 [facility] Comment on above: Performed By: #### L IVER, BMP, TSH, LIPID #### [facility] [address] [place] [address] Dr. Jensen Mckeon Globulin (S) [Mass/Vol] 3.8 g/dL Normal [facility] Comment on above: Performed By: #### L IVER, BMP, TSH, LIPID #### [facility] [address] [address] [address] Jensen Mckeon Protein [Mass/Vol] 7.7 g/dL Normal 6.4-8.2 [facility] Comment on above: Performed By: #### L IVER, BMP, TSH, LIPID #### [facility] [address] [place] [address] Dr. Jensen Mckeon PROF CHEM 8 (BAS METB)on Anion gap [Moles/Vol] 11.3 mmol/L Normal [facility] Comment on above: Performed By: #### L IVER, BMP, TSH, LIPID #### [facility] [address] [place] [address] Dr. Jensen Mckeon Calcium [Mass/Vol] 9.5 mg/dL Normal 8.5-10.1 [facility] Comment on above: Performed By: #### L IVER, BMP, TSH, LIPID #### [facility] [address] [place] [address] Dr. Jensen Mckeon Chloride [Moles/Vol] 103 mmol/L Normal 98-107 [facility] Comment on above: Performed By: #### L IVER, BMP, TSH, LIPID #### [facility] [address] [place] [address] Dr. Jensen Mckeon CO2 [Moles/Vol] 27.8 mmol/L Normal 21.0-32.0 [facility] Comment on above: Performed By: #### L IVER, BMP, TSH, LIPID #### [facility] [address] [place] [address] Dr. Jensen Mckeon Creatinine [Mass/Vol] 0.79 mg/dL Normal 0.55-1.02 [facility] Comment on above: Performed By: #### L IVER, BMP, TSH, LIPID #### [facility] [address] [place] [address] Dr. Jensen Mckeon EGFR-AF [place] CITIZ[place] >60 Normal >=60 [facility] Comment on above: Performed By: #### L IVER, BMP, TSH, LIPID #### [facility] [address] [address] [address] Jensen Mckeon EGFR-NON AF [place] CITIZ[place] >60 Normal >=60 [facility] Comment on above: Performed By: #### L IVER, BMP, TSH, LIPID #### [facility] [address] [address] [address] Jensen Mckeon Glucose [Mass/Vol] 77 mg/dL Normal 74-106 [facility] Comment on above: Performed By: #### L IVER, BMP, TSH, LIPID #### [facility] [address] [address] [address] Jensen Mckeon Potassium [Moles/Vol] 4.1 mmol/L Normal 3.5-5.1 [facility] Comment on above: Performed By: #### L IVER, BMP, TSH, LIPID #### [facility] [address] [address] [address] Jensen Mckeon Sodium [Moles/Vol] 138 mmol/L Normal 136-145 [facility] Comment on above: Performed By: #### L IVER, BMP, TSH, LIPID #### [facility] [address] [address] [address] Jensen Mckeon Urea nitrogen [Mass/Vol] 15.0 mg/dL Normal 7.0-18.0 [facility] Comment on above: Performed By: #### L IVER, BMP, TSH, LIPID #### [facility] [address] [address] [address] Jensen Mckeon Urea nitrogen/Creatinine [Mass ratio] 19.0 mg/mg Normal [facility] Comment on above: Performed By: #### L IVER, BMP, TSH, LIPID #### [facility] [address] [place] [address] Dr. Jensen Mckeon TSHon 04-09-2022 TSH 0.959 uIU/mL Normal 0.358-3.740 [facility] Comment on above: Performed By: #### L IVER, BMP, TSH, LIPID #### [facility] [address] [address] [address] Jensen Mckeon CBC AUTO DIFFon 12-26-2021 BASO # 0.1 103/ul Normal 0.0-0.1 [facility] Comment on above: Performed By: #### L IVER, BMP, TSH, LIPID #### [facility] [address] [place] [address] Dr. Jensen Mckeon Basophils/100 WBC (Bld) 0.4 % Normal 0.2-2.0 [facility] Comment on above: Performed By: #### L IVER, BMP, TSH, LIPID #### [facility] [address] [place] [address] Dr. Jensen Mckeon EO # 0.1 103/ul Normal 0.0-0.7 [facility] Comment on above: Performed By: #### L IVER, BMP, TSH, LIPID #### [facility] [address] [place] [address] Dr. Jensen Mckeon Eosinophils/100 WBC (Bld) 0.4 % Critically low 0.9-7.0 [facility] Comment on above: Performed By: #### L IVER, BMP, TSH, LIPID #### [facility] [address] [place] [address] Dr. Jensen Mckeon Erythrocyte distribution width (RBC) [Ratio] 15.1 % Critically high 11.0-15.0 [facility] Comment on above: Performed By: #### L IVER, BMP, TSH, LIPID #### [facility] [address] [place] [address] Dr. Jensen Mckeon Hematocrit (Bld) [Volume fraction] 24.2 % Critically low 36.0-48.0 [facility] Comment on above: Performed By: #### L IVER, BMP, TSH, LIPID #### [facility] [address] [place] [address] Dr. Jensen Mckeon Hemoglobin (Bld) [Mass/Vol] 7.4 g/dL Critically low 12.0-16.0 [facility] Comment on above: Performed By: #### L IVER, BMP, TSH, LIPID #### [facility] [address] [place] [address] Dr. Jensen Mckeon IG # 0.18 10e3/ul Critically high 0.00-0.03 [facility] Comment on above: Performed By: #### L IVER, BMP, TSH, LIPID #### [facility] [address] [address] [address] Jensen Mckeon IG % 1.3 % Critically high 0.0-0.5 [facility] Comment on above: Performed By: #### L IVER, BMP, TSH, LIPID #### [facility] [address] [address] [address] Jensen Mckeon LYMPH # 1.7 103/ul Normal 1.2-3.8 [facility] Comment on above: Performed By: #### L IVER, BMP, TSH, LIPID #### [facility] [address] [place] [address] Dr. Jensen Mckeon Lymphocytes/100 WBC (Bld) 12.4 % Critically low 20.5-60.0 [facility] Comment on above: Performed By: #### L IVER, BMP, TSH, LIPID #### [facility] [address] [place] [address] Dr. Jensen Mckeon MANUAL DIFF REQ NO Normal [facility] Comment on above: Performed By: #### L IVER, BMP, TSH, LIPID #### [facility] [address] [place] [address] Dr. Jensen Mckeon MCH (RBC) [Entitic mass] 24.9 pg Critically low 26.7-34.0 [facility] Comment on above: Performed By: #### L IVER, BMP, TSH, LIPID #### [facility] [address] [place] [address] Dr. Jensen Mckeon MCHC (RBC) [Mass/Vol] 30.6 g/dL Normal 29.9-35.2 [facility] Comment on above: Performed By: #### L IVER, BMP, TSH, LIPID #### [facility] [address] [place] [address] Dr. Jensen Mckeon MCV (RBC) [Entitic vol] 81.5 fL Normal 81.0-99.0 [facility] Comment on above: Performed By: #### L IVER, BMP, TSH, LIPID #### [facility] [address] [place] [address] Dr. Jensen Mckeon MONO # 1.0 103/ul Critically high 0.3-0.8 [facility] Comment on above: Performed By: #### L IVER, BMP, TSH, LIPID #### [facility] [address] [place] [address] Dr. Jensen Mckeon Monocytes/100 WBC (Bld) 7.4 % Normal 1.7-12.0 [facility] Comment on above: Performed By: #### L IVER, BMP, TSH, LIPID #### [facility] [address] [place] [address] Dr. Jensen Mckeon NEUT # 10.9 103/ul Critically high 1.4-6.5 [facility] Comment on above: Performed By: #### L IVER, BMP, TSH, LIPID #### [facility] [address] [place] [address] Dr. Jensen Mckeon Neutrophils/100 WBC (Bld) 78.1 % Critically high 43.0-75.0 [facility] Comment on above: Performed By: #### L IVER, BMP, TSH, LIPID #### [facility] [address] [place] [address] Dr. Jensen Mckeon Platelet mean volume (Bld) [Entitic vol] 9.0 fL Critically low 9.5-13.5 [facility] Comment on above: Performed By: #### L IVER, BMP, TSH, LIPID #### [facility] [address] [place] [address] Dr. Jensen Mckeon PLT 253 103/ul Normal 150-450 [facility] Comment on above: Performed By: #### L IVER, BMP, TSH, LIPID #### [facility] [address] [place] [address] Dr. Jensen Mckeon RBC 2.97 106/ul Critically low 4.20-5.40 [facility] Comment on above: Performed By: #### L IVER, BMP, TSH, LIPID #### [facility] [address] [place] [address] Dr. Jensen Mckeon WBC 13.9 103/ul Critically high 4.0-11.0 [facility] Comment on above: Performed By: #### L IVER, BMP, TSH, LIPID #### [facility] [address] [place] [address] Dr. Jensen Mckeon CBC AUTO DIFFon 12-25-2021 BASO # 0.1 103/ul Normal 0.0-0.1 [facility] Comment on above: Performed By: #### L IVER, BMP, TSH, LIPID #### [facility] [address] [place] [address] Dr. Jensen Mckeon Basophils/100 WBC (Bld) 0.8 % Normal 0.2-2.0 [facility] Comment on above: Performed By: #### L IVER, BMP, TSH, LIPID #### [facility] [address] [place] [address] Dr. Jensen Mckeon EO # 0.2 103/ul Normal 0.0-0.7 [facility] [facility] Comment on above: Performed By: #### L IVER, BMP, TSH, LIPID #### [facility] [address] [place] [address] Dr. Jensen Mckeon Eosinophils/100 WBC (Bld) 2.1 % Normal 0.9-7.0 [facility] Comment on above: Performed By: #### L IVER, BMP, TSH, LIPID #### [facility] [address] [place] [address] Dr. Jensen Mckeon Erythrocyte distribution width (RBC) [Ratio] 14.9 % Normal 11.0-15.0 [facility] Comment on above: Performed By: #### L IVER, BMP, TSH, LIPID #### [facility] [address] [place] [address] Dr. Jensen Mckeon Hematocrit (Bld) [Volume fraction] 29.8 % Critically low 36.0-48.0 [facility] Comment on above: Performed By: #### L IVER, BMP, TSH, LIPID #### [facility] [address] [place] [address] Dr. Jensen Mckeon Hemoglobin (Bld) [Mass/Vol] 9.5 g/dL Critically low 12.0-16.0 [facility] Comment on above: Performed By: #### L IVER, BMP, TSH, LIPID #### [facility] [address] [address] [address] Jensen Mckeon IG # 0.19 10e3/ul Critically high 0.00-0.03 [facility] Comment on above: Performed By: #### L IVER, BMP, TSH, LIPID #### [facility] [address] [address] [address] Jensen Mckeon IG % 2.0 % Critically high 0.0-0.5 [facility] Comment on above: Performed By: #### L IVER, BMP, TSH, LIPID #### [facility] [address] [address] [address] Jensen Mckeon LYMPH # 1.9 103/ul Normal 1.2-3.8 [facility] Comment on above: Performed By: #### L IVER, BMP, TSH, LIPID #### [facility] [address] [address] [address] Jensen Mckeon Lymphocytes/100 WBC (Bld) 20.6 % Normal 20.5-60.0 [facility] Comment on above: Performed By: #### L IVER, BMP, TSH, LIPID #### [facility] [address] [address] [address] Jensen Mckeon MANUAL DIFF REQ NO Normal [facility] Comment on above: Performed By: #### L IVER, BMP, TSH, LIPID #### [facility] [address] [address] [address] Jensen Mckeon MCH (RBC) [Entitic mass] 25.3 pg Critically low 26.7-34.0 [facility] Comment on above: Performed By: #### L IVER, BMP, TSH, LIPID #### [facility] [address] [address] [address] Jensen Mckeon MCHC (RBC) [Mass/Vol] 31.9 g/dL Normal 29.9-35.2 [facility] Comment on above: Performed By: #### L IVER, BMP, TSH, LIPID #### [facility] [address] [place] [address] Dr. Jensen Mckeon MCV (RBC) [Entitic vol] 79.3 fL Critically low 81.0-99.0 [facility] Comment on above: Performed By: #### L IVER, BMP, TSH, LIPID #### [facility] [address] [place] [address] Dr. Jensen Mckeon MONO # 0.8 103/ul Normal 0.3-0.8 [facility] Comment on above: Performed By: #### L IVER, BMP, TSH, LIPID #### [facility] [address] [place] [address] Dr. Jensen Mckeon Monocytes/100 WBC (Bld) 8.0 % Normal 1.7-12.0 [facility] Comment on above: Performed By: #### L IVER, BMP, TSH, LIPID #### [facility] [address] [place] [address] Dr. Jensen Mckeon NEUT # 6.2 103/ul Normal 1.4-6.5 [facility] Comment on above: Performed By: #### L IVER, BMP, TSH, LIPID #### [facility] [address] [place] [address] Dr. Jensen Mckeon Neutrophils/100 WBC (Bld) 66.5 % Normal 43.0-75.0 [facility] Comment on above: Performed By: #### L IVER, BMP, TSH, LIPID #### [facility] [address] [place] [address] Dr. Jensen Mckeon Platelet mean volume (Bld) [Entitic vol] 9.2 fL Critically low 9.5-13.5 [facility] Comment on above: Performed By: #### L IVER, BMP, TSH, LIPID #### [facility] [address] [place] [address] Dr. Jensen Mckeon PLT 300 103/ul Normal 150-450 [facility] Comment on above: Performed By: #### L IVER, BMP, TSH, LIPID #### [facility] [address] [address] [address] Jensen Mckeon RBC 3.76 106/ul Critically low 4.20-5.40 [facility] Comment on above: Performed By: #### L IVER, BMP, TSH, LIPID #### [facility] [address] [place] [address] Dr. Jensen Mckeon WBC 9.3 103/ul Normal 4.0-11.0 [facility] Comment on above: Performed By: #### L IVER, BMP, TSH, LIPID #### [facility] [address] [place] [address] Dr. Jensen Mckeon CULTURE URINEon 12-25-2021 CULTURE URINE Culture Observations : LIGHT GROWTH OF MIXED GENITAL DALIA. NO POTENTIAL PATHOGENS SEEN. Normal [facility] Comment on above: Performed By: #### L IVER, BMP, TSH, LIPID #### [facility] [address] [place] [address] Dr. Jensen Mckeon DRUG SCREEN RAPID (URINE)on 12-25-2021 AMP Negative Normal NEGATIVE [facility] Comment on above: Performed By: #### D RUGRPD #### [facility] [address] [place] [address] Dr. Jensen Mckeon BAR Negative Normal NEGATIVE [facility] Comment on above: Performed By: #### D RUGRPD #### [facility] [address] [place] [address] Dr. Jensen Mckeon BUP Negative Normal NEGATIVE [facility] Comment on above: Performed By: #### D RUGRPD #### [facility] [address] [place] [address] Dr. Jensen Mckeon BZO Negative Normal NEGATIVE [facility] Comment on above: Performed By: #### D RUGRPD #### [facility] [address] [place] [address] Dr. Jensen Mckeon WES Negative Normal NEGATIVE [facility] Comment on above: Performed By: #### D RUGRPD #### [facility] [address] [place] [address] Dr. Jensen Mckeon CUT-OFFS SEE BELOW Normal [facility] Comment on above: Result Comment: [...] ng/mL Performed By: #### D RUGRPD #### [facility] [address] [place] [address] Dr. Jensen Mckeon DRUG CUT HEADER DRUG CLASS TEST SYSTEM CUT-OFF CONCENTRATIONS ARE FOLLOWS: Normal [facility] Comment on above: Performed By: #### D RUGRPD #### [facility] [address] [place] [address] Dr. Jensen Mckeon mAMP Negative Normal NEGATIVE [facility] Comment on above: Performed By: #### D RUGRPD #### [facility] [address] [place] [address] Dr. Jensen Mckeon MTD Negative Normal NEGATIVE [facility] Comment on above: Performed By: #### D RUGRPD #### [facility] [address] [place] [address] Dr. Jensen Mckeon OPI Negative Normal NEGATIVE [facility] Comment on above: Performed By: #### D RUGRPD #### [facility] [address] [place] [address] Dr. Jensen Mckeon OXY Negative Normal NEGATIVE [facility] Comment on above: Performed By: #### D RUGRPD #### [facility] [address] [place] [address] Dr. eJnsen Mckeon PCP Negative Normal NEGATIVE [facility] Comment on above: Performed By: #### D RUGRPD #### [facility] [address] [address] [address] Jensen Mckeon PPX Negative Normal NEGATIVE [facility] Comment on above: Performed By: #### D RUGRPD #### [facility] [address] [place] [address] Dr. Jensen Mckeon TCA Negative Normal NEGATIVE [facility] Comment on above: Performed By: #### D RUGRPD #### [facility] [address] [place] [address] Dr. Jensen Mckeon THC Negative Normal NEGATIVE [facility] Comment on above: Performed By: #### D RUGRPD #### [facility] [address] [place] [address] Dr. Jensen Mckeon TYPE AND SCREENon 12-25-2021 TYPE AND SCREEN Negative Normal [facility] Comment on above: Performed By: #### L IVER, BMP, TSH, LIPID #### [facility] [address] [place] [address] Dr. Jensen Mckeon UA (CLEAN/CATCH) BILLET WORKER/MICRO I F IND.on 12-25-2021 Bilirubin Ql (U) Negative Normal NEGATIVE [facility] Comment on above: Performed By: #### U ACSIND, UMICRO #### [facility] [address] [place] [address] Dr. Jensen Mckeon Clarity (U) CLEAR Normal CLEAR [facility] Comment on above: Performed By: #### U ACSIND, UMICRO #### [facility] [address] [place] [address] Dr. Jensen Mckeon Color (U) LT. YELLOW Normal YELLOW [facility] Comment on above: Performed By: #### U ACSIND, UMICRO #### [facility] [address] [place] [address] Dr. Jensen Mckeon Glucose Ql (U) Negative Normal NEGATIVE [facility] Comment on above: Performed By: #### U ACSIND, UMICRO #### [facility] [address] [place] [address] Dr. Jensen Mckeon Hemoglobin Ql (U) Negative Normal NEGATIVE [facility] Comment on above: Performed By: #### U ACSIND, UMICRO #### [facility] [address] [address] [address] Jensen Mckeon Ketones Ql (U) Negative Normal NEGATIVE [facility] Comment on above: Performed By: #### U ACSIND, UMICRO #### [facility] [address] [address] [address] Jensen Mckeon LEUKOCYTES TRACE Abnormal NEGATIVE [facility] Comment on above: Performed By: #### U ACSIND, UMICRO #### [facility] [address] [address] [address] Jensen Mckeon Nitrite Ql (U) Negative Normal NEGATIVE [facility] Comment on above: Performed By: #### U ACSIND, UMICRO #### [facility] [address] [place] [address] Dr. Jensen Mckeon pH (U) 6.5 [pH] Normal 5-9 [facility] Comment on above: Performed By: #### U ACSCASSANDRA, UMICRO #### [facility] [address] [place] [address] Dr. Jensen Mckeon SPEC GRAVITY 1.025 Normal 1.005-<=1.025 [facility] Comment on above: Performed By: #### U ACSCASSANDRA, UMICRO #### [facility] [address] [place] [address] Dr. Jensen Mckeon UA PROTEIN Negative Normal NEGATIVE/ TRACE [facility] Comment on above: Performed By: #### U ACSCASSANDRA, UMICRO #### [facility] [address] [place] [address] Dr. Jensen Mckeon UR MICRO IND INDICATED Normal [facility] Comment on above: Performed By: #### U ACSIND, UMICRO #### [facility] [address] [place] [address] Dr. Jensen Mckeon Urobilinogen Qn (U) 0.2 {Cherelle'U}/dL Normal 0.2 - 1. 0 [facility] Comment on above: Performed By: #### U ACSIND, UMICRO #### [facility] [address] [place] [address] Dr. Jensen Mckeon URINE MICROSCOPIC ONLYon BACTERIA MODERATE Abnormal NONE SEEN [facility] Comment on above: Performed By: #### U ACSIND, UMICRO #### [facility] [address] [place] [address] Dr. Jensen Mckeon Bacteria identified Cx Nom (U) INDICATED Normal [facility] Comment on above: Performed By: #### U ACSIND, UMICRO #### [facility] [address] [place] [address] Dr. Jensen Mckeon CAST NONE SEEN Normal NONE SEEN [facility] Comment on above: Performed By: #### U ACSIND, UMICRO #### [facility] [address] [place] [address] Dr. Jensen Mckeon Crystals LM Nom (Urine sed) NONE SEEN Normal NONE SEEN [facility] Comment on above: Performed By: #### U ACSIND, UMICRO #### [facility] [address] [place] [address] Dr. Jensen Mckeon Epithelial cells LM Ql (Urine sed) MANY Abnormal NONE SEEN /RARE [facility] Comment on above: Performed By: #### U ACSIND, UMICRO #### [facility] [address] [place] [address] Dr. Jensen Mckeon MUCOUS NONE SEEN Normal NONE SEEN [facility] Comment on above: Performed By: #### U ACSIND, UMICRO #### [facility] [address] [place] [address] Dr. Jensen Mckeon RBC 0-2 Normal 0-2 [facility] Comment on above: Performed By: #### U ACSIND, UMICRO #### [facility] [address] [place] [address] Dr. Jensen Mckeon WBC 5-10 Abnormal NONE SEEN [facility] Comment on above: Performed By: #### U ACSIND, UMICRO #### [facility] [address] [place] [address] Dr. Jensen Mckeon Covid-19 PCR (CVDTB)on 12-12 SARS-CoV-2 (COVID-19) RNA SRAVANTHI+probe Ql (Unsp spec) Not detected Normal NOT DETECTED [facility] Comment on above: Result Comment: This test is not yet approved or cleared by the [place] FDA. When there are no FDA-approved or cleared tests available, and other criteria are met, FDA can make tests available under an emergency access mechanism called an Emergency Use Authorization (EUA). The EUA for this test is supported by the [place] of Health and Human Service's (HHS's) declaration [...] #### L IVER, BMP, TSH, LIPID #### [facility] [address] [place] [address] Dr. Jensen Mckeon US PREG BIOPHY W [...] MARCELLE MARTINEZ Date: 2021-12-22 19:25 Normal [facility] US PREG BIOPHY W NON STRESSo n [...] by: SIRENA FRANKS Date: 2021-12-17 17:13 Normal [facility] US PREG BIOPHY W NON [...] by: SIRENA FRANKS Date: 2021-12-17 16:20 Normal [facility] US PREG BIOPHY W NON [...] MARCELLE MARTINEZ Date: 2021-12-08 16:05 Normal [facility] GROUP B STREP CULTUREon 11-13 S. agalactiae Ag Ql (Unsp spec) Culture Observations: NEGATIVE FOR GROUP B STREPTOCOCCUS. Normal [facility] Comment on above: Performed By: #### L IVER, BMP, TSH, LIPID #### [facility] [address] [place] [address] Dr. Jensen Mckeon US PREG BIOPHY W [...] by: SIRENA FRANKS Date: 2021-12-01 17:21 Normal [facility] US PREG BIOPHY W NON [...] by: SIRENA FRANKS Date: 2021-11-24 17:26 Normal [facility] US PREG BIOPHY W NON [...] by: MARCELLE MARTINEZ Date: 2021-11-17 18:19 Normal [facility] US PREG BIOPHY W NON [...] SIRENA FRANKS Date: 2021-11-13 07:25 Normal [facility] US PREG GROWTHon 10-13-2021 US PREG GROWTH [...] SIRENA FRANKS Date: 2021-10-13 09:49 Normal [facility] GTT 3 HR PREGon 09-10-2021 Glucose [Mass/Vol] 82 mg/dL Normal 74-106 [facility] Comment on above: Performed By: #### G TT3P #### [facility] [address] [address] [address] Jensen Mckeon Glucose [Mass/Vol] 123 mg/dL Normal [facility] Comment on above: Performed By: #### G TT3P #### [facility] [address] [address] [address] Jensen Mckeon Glucose [Mass/Vol] 104 mg/dL Normal [facility] Comment on above: Performed By: #### G TT3P #### [facility] [address] [place] [address] Dr. Jensen Mckeon Glucose [Mass/Vol] 76 mg/dL Normal [facility] Comment on above: Performed By: #### G TT3P #### [facility] [address] [place] [address] Dr. Jensen Mckeon GLUCOSE - 1HRon 09-04-2021 Glucose [Mass/Vol] 150 mg/dL Critically high 74-106 [facility] Comment on above: Performed By: #### L IVER, BMP, TSH, LIPID #### [facility] [address] [place] [address] Dr. Jensen Mckeon HEMOGRAM AND PLATELon 2021 Hematocrit (Bld) [Volume fraction] 31.9 % Critically low 36.0-48.0 [facility] Comment on above: Performed By: #### H H #### [facility] [address] [place] [address] Dr. Jensen Mckeon Hemoglobin (Bld) [Mass/Vol] 10.5 g/dL Critically low 12.0-16.0 [facility] Comment on above: Performed By: #### H H #### [facility] [address] [place] [address] Dr. Jensen Mckeon MCH (RBC) [Entitic mass] 28.8 pg Normal 26.7-34.0 [facility] Comment on above: Performed By: #### H H #### [facility] [address] [place] [address] Dr. Jensen Mckeon MCHC (RBC) [Mass/Vol] 32.9 g/dL Normal 29.9-35.2 [facility] Comment on above: Performed By: #### H H #### [facility] [address] [place] [address] Dr. Jensen Mckeon MCV (RBC) [Entitic vol] 87.6 fL Normal 81.0-99.0 [facility] Comment on above: Performed By: #### H H #### [facility] [address] [place], [place] [address] Dr. Jensen Mckeon PLT 321 103/ul Normal 150-450 [facility] Comment on above: Performed By: #### H H #### [facility] [address] [address] [address] Jensen Mckeon RBC 3.64 106/ul Critically low 4.20-5.40 [facility] Comment on above: Performed By: #### H H #### [facility] [id number] Jensen Mckeon WBC 11.6 103/ul Critically high 4.0-11.[address] [facility] Comment on above: Performed By: #### H H #### [facility] [id number] Jensen Mckeon US PREG PLACENTAon 2 US PREG PLACENTA EXAMINATION: US PREG PLACENTA HISTORY: Low lying placenta follow-up COMPARISON: Ultrasound anatomy 08/15/2021 FINDINGS: PLACENTA: Anterior with lower margin 5.8 cm from os. CERVIX LENGTH: 4.8 cm; closed. HEART RATE: 148 bpm OTHER: None. IMPRESSION: 1. Anterior placenta which is no longer low-lying. Electronically authenticated by: SIRENA FRANKS Date: 2021-09-04 16:31 Normal [facility] US PREG ANATOMY SINGLEon US PREG ANATOMY [...] by ultrasound, 88% by expected EDC; FL/AC: 0.067839 FL/BPD: 0.235527 HC/AC: 1.850615 GESTATIONAL AGE: Age by EDC: 20 weeks 1 day [place] by EDC: 01/01/2022 Age by current US: 20 weeks 4 days [place] by current US: 12/29/2021 IMPRESSION: Low lying placenta, otherwise normal anatomy scan *Reference: [employer] Practice Guideline for the performance of Obstetric Ultrasound Examinations, March 14, 2007. Electronically authenticated by: MARCELLE MARTINEZ Date: 2021-08-15 10:06 [facility] Vital Signs Date Time Vital Sign Value Performing Clinician Rogelioi lity 07-27-2023 15:28-0500 Body mass index (BMI) [Ratio] 28.42 kg/m2 Tami Vi DO Work Phone: [facility] 07-27-2023 15:28-0500 Body weight 70.49 kg Tami Vi DO Work Phone: [facility] 07-27-2023 15:28-0500 Diastolic blood pressure 74 mm[Hg] Tami Vi DO Work Phone: [facility] 07-27-2023 15:28-0500 Systolic blood pressure 114 mm[Hg] Tami Vi DO Work Phone: [facility] Encounters Encounter Date Encounter Type Care Provider Facility Start: 09-02-2023 End: 09-02-2023 ambulatory TAMI VI Not Available Start: 07-27-2023 End: 07-27-2023 ambulatory TAMI VI Not Available Start: 07-27-2023 End: 07-27-2023 Patient encounter procedure Tami Vi DO Work Phone: [facility] [employer] Work Phone: Start: 07-27-2023 End: 07-27-2023 Periodic [...] examination without abnormal findings DR ASHER FULLER [facility] Start: 04-09-2022 End: 04-10-2022 ambulatory [...] encounter procedure 09/02/2023 9:50 AM EDT Consult [facility] [address] [address] Tami Lebron, DO [address] [place] [address] [facility] Start: 02-12-2023 Influenza vaccination Influenza Vacc ine (#1) [facility] Start: 2014 Screening for malign ant neoplasm of cervix [facility] Start: 2005 Screening for malign ant neoplasm of cervix Pap Smear [facility] Cytology Cervical or vaginal smear or scraping study Pap Smear Pathology and Cytology Routine Well woman exam with routine gynecological exam Ordered: 07/27/2023 [facility] Work Phone: Comment on above: Ordered: 07/27/2023 Human papilloma viru s DNA [Presence] in Unspecified specimen by Probe with amplification HPV DNA probe, amplified Microbiology Routine Well woman exam with routine gynecological exam Ordered: 07/27/2023 [facility] Comment on above: Ordered: 07/27/2023 Payers Date Payer Category Payer Unknown BCBS BCBS xxxxxx [id number] 2021-[facility] [phone] [id number] [place] [id number] 1984 Unknown [id number] [id number]3 1984 Unknown [id number] 2.16.840.1.491799.3.579.2.593 1984 Unknown [id number] 2.16.840.1.637592.3.579.2.593 1984 Unknown [id number] 2.16.840.1.107485.3.579.2.593 1984 Unknown [id number] 2.16.840.1.765356.3.579.2.593 1984 Unknown [id number] 2.16.840.1.295439.3.579.2.593 1984 Unknown [id number] 2.16.840.1.734692.3.579.2.593 1984 Unknown [id number] 2.16.840.1.460795.3.579.2.593 1984 Unknown [id number] 2.16.840.1.596800.3.579.2.593 1984 Unknown [id number] 2.16.840.1.272758.3.579.2.593 1984 Unknown [id number] 2.16.840.1.596590.3.579.2.593 1984 Unknown [id number] 2.16.840.1.290781.3.579.2.593 1984 Unknown [id number] 2.16.840.1.828164.3.579.2.593 1984 Unknown [id number] 2.16.840.1.860383.3.579.2.593 1984 Unknown [id number] 2.16.840.1.994564.3.579.2.593 1984 Unknown [id number] 2.16.840.1.898959.3.579.2.593 1984 Unknown [id number] 2.16.840.1.678391.3.579.2.593 1984 Unknown [id number] 2.16.840.1.524623.3.579.2.593 1984 Unknown [id number] 2.16.840.1.429395.3.579.2.1259 1984 Unknown [id number] 2.16.840.1.621982.3.579.2.1259 1984 Unknown [id number] 2.16.840.1.632455.3.579.2.1259 1959 Unknown [id number] Social History Date Type Detail Facility Start: 07-14-2023 Tobacco smoking status MEIS Never sm oked tobacco [facility] Start: [...] to any clubs or organizations such as confucianist groups, unions, fraternal or athletic groups, or [...] Gender identity Identifies as female gender (finding) [facility] History of Present illness Narrative 07-27-2023 Estephanie Esparza, INFORMATION SYSTEMS TECHNICIAN - 07/27/2023 3:00 PM EST Note Date & Type Note Facility 07-27-2023 History of Presen t illness Narrative Reason for Appointment: Patient ID: Emily Pruitt is a 37 y.o. female who presents for [facility] Visit Patient presents today for Annual Exam appointment. Current Medications: currently has no medications in their medication list. Medical History: Active Ambulatory Problems Diagnosis Date Noted Asthma ([facility]) 07/14/2023 Genital herpes 07/14/2023 Recurrent major depression in remission ([facility]) ([facility]) 07/14/2023 Plantar fasciitis, left 07/14/2023 Annual physical exam 07/14/2023 Stress reaction 07/14/2023 Resolved Ambulatory Problems Diagnosis Date Noted No Resolved Ambulatory Problems Past Medical History: Diagnosis Date BMI 26.0-26.9,adult GERD (gastroesophageal reflux disease) H/O bronchitis MDD (recurrent major depressive disorder) in remission (HCC) ([facility]) Reactive airway disease ([facility]) Seasonal allergies Varicose veins of legs [...] nursing note reviewed. Exam conducted with a transportation logistics internship present. Vitals: Estimated body mass index is [...] Tami Lebron DO documented in this encounter [facility] Clinical Note 12-25-2021 Note Date & Type Note Facility 12-25-2021 Note OPERATIVE NOTE OPERATION DATE: 12/25/2021 PROCEDURE: Repeat low transverse section. PREOPERATIVE DIAGNOSIS: 1. Intrauterine at 39 weeks. 2. Previous . POSTOPERATIVE DIAGNOSIS: 1. Intrauterine at 39 weeks. 2. Previous . ANESTHESIA: Spinal with Duramorph. SURGEON: Tami Lebron D.O. LAUNDRY AIDE: GABRIEL Nesbitt URINE OUTPUT: Yellow and clear. [...] and cut. Cord blood was obtained. The infant was handed off to awaiting team. The [...] to the Recovery Room in stable condition. [facility] Signed and Approved by: DR TAMI LEBRON . 12/27/2021 11:59:00 [facility] Discharge summary note 12-25-2021 Note Date & [...] free and no longer on narcotics. [facility] Evaluation note Note Date & Type Note [...] and content) DATE CREATED AUTHOR 07/28/2022 [facility] DATE CREATED AUTHOR AUTHOR'S ORGANIZ ATION 09/03/2023 [facility] EPIC Reason for Visit (unrecogniz ed section and content) Reason Comments Well Women Visit Care Teams (unrecognized sec tion and content) Digital Business Analyst Relationship Specialty Start Date End Date Asher Fuller MD [address] [place] [address] PCP - General Family Medicine 07/27/23 FOR [...] BE BASED ON THE PRIMARY CLINICAL RECORDS. [facility] [employer] [facility]. provides no warranty or guarantee of the accuracy or completeness of information in this document.
[2023-10-01 10:31] LABS: HCG Quantitative <1 mIU/mL
[2023-10-01] MEDS: LACTATED RINGER'S SOLUTION 1,000 ML 50 ML IV (10:55)
[2023-10-01] MEDS: SCOPOLAMINE 1 MG/3 DAYS TRANSDERM PATCH 1 PATCH TD (11:25)
[2023-10-01] MEDS: BACITRACIN OINTMENT 28.4 GM TUBE 1 APPLIC TOPICAL (12:56)
--- NOTE | 2023-10-01 13:07 | PM.ONB ---
Brief Operative Note Date of procedure: 10/01/23 Pre-op diagnosis general: dyspareunia, excessive skin from prior episiotomy site Post-op diagnosis: same as pre-op Procedure: NAME OF PROCEDURE: [ repair of episiotomy site] PROCEDURE: The patient was taken back to the Operating Room where she was prepped and draped in normal sterile fashion after being placed under general anesthesia without difficulty. She was also placed in the dorsal lithotomy position. excess skin from a prior episiotomy was identified on the patients right side, the excess skin was removed using scaple, the bovie was used for hemostasis, the skin was closed using 4-0 vicryl in an interrupted fashion. The patient tolerated the procedure well. Sponge, lap and needle counts were correct times two. The patient was taken to the Recovery Room in stable condition.Room in stable condition. Anesthesia: MAC Surgeon: Sarwat Lebron Estimated blood loss (mL): 5 Pathology: none sent Condition: stable Disposition: PACU Urinary Catheter Management Urinary Catheter Management Urethral: Cath placed during this visit: no
[2023-10-01] MEDS: LACTATED RINGER'S SOLUTION 1,000 ML 150 ML IV (13:52)
== END 2023-10-01 15:20 | disposition home or self-care (01) ==
PROVIDERS: PCP Family Medicine; Visit Provider Obstetrics & Gynecology
PROC: (CPT 906; principal; 2023-10-01 11:10)
DX: N90.60 Unspecified hypertrophy of vulva (principal); N94.10 Unspecified dyspareunia; J45.909 Unspecified asthma, uncomplicated; K21.9 Gastro-esophageal reflux disease without esophagitis
CPT/HCPCS: 56620; 36415; 84702; J1094; J2704

== ENCOUNTER 2024-08-01 20:22 | Outpatient (REF) | payer BC, SELFPAY ==
--- OUTSIDE RECORDS SUMMARY | 2024-08-01 20:25 | XMS_ITS | CCD ---
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 Name Role Phone VI, DR GARRETT Admitting [...] ASHER Page Admitting Unavailable NADERER, DR ASHER Paeg Attending Unavailable NADERER, DR ASHER Page Primary [...] Consulting Unavailable KARASIK, DR STACK Consulting Unavailable KARGREGK, DR STACK Attending Unavailable KARGREGK, DR STACK Admitting Unavailable JUANCARLOS, DR STEWART Primary Care Unavailable WEST, DR MARCELLE Minor Consulting Unavailable VI, DR GARRETT Consulting Unavailable WEST, DR MARCELLE Minor Consulting Unavailable JUANCARLOS, DR STEWART [facility] Unavailable VI, DR GARRETT Attending Unavailable VI, DR GARRETT Admitting Unavailable VI, DR GARRETT Consulting Unavailable KARASIK, DR STACK Consulting Unavailable KARASIK, DR STACK Attending Unavailable KARASIK, DR STACK Admitting Unavailable JUANCARLOS, DR STEWRAT [facility] Unavailable VI, DR GARRETT Consulting Unavailable ZIEBER, DR SIRENA Butler Consulting Unavailable KARASIK, DR STACK Consulting Unavailable JUANCARLOS, DR STEWART [facility] Unavailable KARASIK, DR STACK Attending Unavailable KARASIK, DR STACK Admitting Unavailable ZIEBER, DR SIRENA Butler Consulting Unavailable KARASIK, DR STACK Consulting Unavailable KARASIK, DR STACK Attending Unavailable KARASIK, DR STACK Admitting Unavailable JUANCARLOS, DR STEWART [facility] Unavailable VI, DR GARRETT Consulting Unavailable ZIEBER, DR SIRENA Butler Consulting Unavailable KARASIK, DR STACK Consulting Unavailable KARASIK, DR STACK Attending Unavailable KARASIK, DR STACK Admitting Unavailable JUANCARLOS, DR STEWART [facility] Unavailable VI, DR GARRETT Consulting Unavailable ZIEBER, DR SIRENA Butler Consulting Unavailable VI, DR GARRETT Admitting Unavailable VI, DR GARRETT Attending Unavailable JUANCARLOS, DR STEWART [facility] Unavailable WEST, DR MARCELLE Minor Consulting Unavailable VI, DR GARRETT Consulting Unavailable VI, DR GARRETT Consulting Unavailable JUANCARLOS, DR STEWART [facility] Unavailable VI, DR GARRETT Attending Unavailable VI, DR GARRETT Admitting Unavailable ZIEBER, DR SIRENA Butler Consulting Unavailable KARASIK, DR STACK Consulting Unavailable JUANCARLOS, DR STEWART [facility] Unavailable VI, DR GARRETT Attending Unavailable VI, DR GARRETT Admitting Unavailable VI, DR GARRETT Consulting Unavailable JUANCARLOS, DR STEWART Primary Care Unavailable VI, DR GARRETT Attending Unavailable VI, DR GARRETT Admitting Unavailable ZIEBER, DR SIRENA Butler Consulting Unavailable Asher Fuller MD Primary Care Provider [phone] ASHER FULLER Attending Unavailable VI, TAMI Attending Unavailable VI, TAMI Attending Unavailable VI, TAMI Attending Unavailable CAROLYNVASYL Attending Unavailable Allergies Allergy Classification Reported Allergen(s) Allergy Type Date of Onset Reaction(s) Facility (1 source) Cefadroxil Drug Allergy [facility] (1 source) Ketorolac Drug Allergy [facility] (1 source) Sulfamethoxazole Drug Allergy [facility] (2 sources) Ketorolac Propensity to adverse reactions 11-05-19 [facility] (2 sources) Ketorolac trometamol Allergy to substance 06-25-19 [facility] (2 sources) Sulfonamides (Antibiotic) Drug Allergy 06-25-19 [facility] (2 sources) Wound Dressing Adhesive Drug Allergy 06-25-19 [facility] Problems Active Problems Problem Classification [...] 29 to 64on 07-28-2022 . . Normal [facility] Comment on above: Result Comment: Perf ormed at: WB Performed By: #### [id number] #### [facility] [address] [place] [address] Dr. Jensen Mckeon Age Gdln ACOG Testing 29- Normal [facility] Comment on above: Performed By: #### [id number] #### [facility] [address] [address] [address] Jensen Mckeon DIAGNOSIS: Comment [facility] Comment on above: Result Comment: NEGA TIVE FOR INTRAEPITHELIAL LESION OR MALIGNANCY. Performed at: WB Performed By: #### [id number] #### [facility] [address] [place] [address] Dr. Jensen Mckeon HPV Aptima Negative Normal Negative [facility] Comment on above: Result Comment: This nucleic acid amplification test detects fourteen high-risk HPV types (16,18,31,33,35,39,45,51,52,56,58,59,66,68) without differentiation. Performed at: =G Performed By: #### [id number] #### [facility] [address] [place] [address] Dr. Jnesen Mckeon HPV Genotype Reflex Comment Normal [facility] Comment on above: Result Comment: Crit eria not met, HPV Genotype not performed. Performed at: WB Performed By: #### [id number] #### [facility] [address] [place] [address] Dr. Jensen Mckeon Methodology: CTIM Normal [facility] Comment on above: Result Comment: The Thin Prep(R) Health And Safety Technician was unable to read this specimen. Therefore a manual review was performed. Performed at: WB Performed By: #### [id number] #### [facility] [address] [place] [address] Dr. Jensen Mckeon Note: Comment Normal [facility] Comment on above: Result Comment: The Pap smear is a screening test designed to aid in the detection of premalignant and malignant conditions of the uterine cervix. It is not a diagnostic procedure and should not be used as the sole means of detecting cervical cancer. Both false-positive and false-negative reports do occur. . Performed at: WB Performed By: #### [id number] #### [facility] [address] [place] [address] Dr. Jensen Mckeon Performed by: Comment Normal [facility] Comment on above: Result Comment: Yo Garcia, Welding Machine Feeder (ASCP) Performed at: WB Performed By: #### [id number] #### [facility] [address] [place] [address] Dr. Jensen Mckeon Specimen adequacy: Comment Normal [facility] Comment on above: Result Comment: Sati sfactory for evaluation. Endocervical and/or squamous metaplastic cells (endocervical component) are present. Performed at: WB Performed By: #### [id number] #### [facility] [address] [place] [address] Dr. Jensen Mckeon CBC AUTO DIFFon 04-09-2022 BASO # 0.1 103/ul Normal 0.0-0.1 [facility] Comment on above: Performed By: #### L IVER, BMP, TSH, LIPID #### [facility] [address] [place] [address] Dr. Jensen Mckeon Basophils/100 WBC (Bld) 0.7 % Normal 0.2-2.0 [facility] Comment on above: Performed By: #### L IVER, BMP, TSH, LIPID #### [facility] [address] [place] [address] Dr. Jensen Mckeon EO # 0.3 103/ul Normal 0.0-0.7 [facility] Comment on above: Performed By: #### L IVER, BMP, TSH, LIPID #### [facility] [address] [place] [address] Dr. Jensen Mckeon Eosinophils/100 WBC (Bld) 4.0 % Normal 0.9-7.0 [facility] Comment on above: Performed By: #### L IVER, BMP, TSH, LIPID #### [facility] [address] [place] [address] Dr. Jensen Mckeon Erythrocyte distribution width (RBC) [Ratio] 14.6 % Normal 11.0-15.0 [facility] Comment on above: Performed By: #### L IVER, BMP, TSH, LIPID #### [facility] [address] [place] [address] Dr. Jensen Mckeon Hematocrit (Bld) [Volume fraction] 39.7 % Normal 36.0-48.0 [facility] Comment on above: Performed By: #### L IVER, BMP, TSH, LIPID #### [facility] [address] [place] [address] Dr. Jensen Mckeon Hemoglobin (Bld) [Mass/Vol] 12.8 g/dL Normal 12.0-16.0 [facility] Comment on above: Performed By: #### L IVER, BMP, TSH, LIPID #### [facility] [address] [address] [address] Jensen Mckeon IG # 0.02 10e3/ul Normal 0.00-0.03 [facility] Comment on above: Performed By: #### L IVER, BMP, TSH, LIPID #### [facility] [address] [address] [address] Jensen Mckeon IG % 0.3 % Normal 0.0-0.5 [facility] Comment on above: Performed By: #### L IVER, BMP, TSH, LIPID #### [facility] [address] [place] [address] Dr. Jensen Mckeon LYMPH # 1.2 103/ul Normal 1.2-3.8 [facility] Comment on above: Performed By: #### L IVER, BMP, TSH, LIPID #### [facility] [address] [place] [address] Dr. Jensen Mckeon Lymphocytes/100 WBC (Bld) 15.7 % Critically low 20.5-60.0 [facility] Comment on above: Performed By: #### L IVER, BMP, TSH, LIPID #### [facility] [address] [address] [address] Jensen Mckeon MANUAL DIFF REQ NO Normal [facility] Comment on above: Performed By: #### L IVER, BMP, TSH, LIPID #### [facility] [address] [place] [address] Dr. Jensen Mckeon MCH (RBC) [Entitic mass] 26.7 pg Normal 26.7-34.0 [facility] Comment on above: Performed By: #### L IVER, BMP, TSH, LIPID #### [facility] [address] [place] [address] Dr. Jensen Mckeon MCHC (RBC) [Mass/Vol] 32.2 g/dL Normal 29.9-35.2 [facility] Comment on above: Performed By: #### L IVER, BMP, TSH, LIPID #### [facility] [address] [place] [address] Dr. Jensen Mckeon MCV (RBC) [Entitic vol] 82.9 fL Normal 81.0-99.0 [facility] Comment on above: Performed By: #### L IVER, BMP, TSH, LIPID #### [facility] [address] [place] [address] Dr. Jensen Mckeon MONO # 0.7 103/ul Normal 0.3-0.8 [facility] Comment on above: Performed By: #### L IVER, BMP, TSH, LIPID #### [facility] [address] [place] [address] Dr. Jensen Mckeon Monocytes/100 WBC (Bld) 9.2 % Normal 1.7-12.0 [facility] Comment on above: Performed By: #### L IVER, BMP, TSH, LIPID #### [facility] [address] [place] [address] Dr. Jensen Mckeon NEUT # 5.3 103/ul Normal 1.4-6.5 [facility] Comment on above: Performed By: #### L IVER, BMP, TSH, LIPID #### [facility] [address] [place] [address] Dr. Jensen Mckeon Neutrophils/100 WBC (Bld) 70.1 % Normal 43.0-75.0 [facility] Comment on above: Performed By: #### L IVER, BMP, TSH, LIPID #### [facility] [address] [place] [address] Dr. Jensen Mckeon Platelet mean volume (Bld) [Entitic vol] 9.1 fL Critically low 9.5-13.5 [facility] Comment on above: Performed By: #### L IVER, BMP, TSH, LIPID #### [facility] [address] [place] [address] Dr. Jensen Mckeon PLT 310 103/ul Normal 150-450 [facility] Comment on above: Performed By: #### L IVER, BMP, TSH, LIPID #### [facility] [address] [place] [address] Dr. Jensen Mckeon RBC 4.79 106/ul Normal 4.20-5.40 [facility] Comment on above: Performed By: #### L IVER, BMP, TSH, LIPID #### [facility] [address] [address] [address] Jensen Mckeon WBC 7.5 103/ul Normal 4.0-11.0 [facility] Comment on above: Performed By: #### L IVER, BMP, TSH, LIPID #### [facility] [address] [address] [address] Jensen Mckeon GLYCOHEMOGLOBIN A1Con 2021 ADA RECOMMENDATION SEE BELOW Normal [facility] Comment on above: Result Comment: ADA RECOMMENDED LIMIT 4.0 - 6.0 ADA THERAPEUTIC TARGET < 7.0 ACTION SUGGESTED > 7.0 Performed By: #### L IVER, BMP, TSH, LIPID #### [facility] [address] [address] [address] Jensen Mckeon Glucose [Mass/Vol] 123 mg/dL Normal [facility] Comment on above: Performed By: #### L IVER, BMP, TSH, LIPID #### [facility] [address] [address] [address] Jensen Mckeon HbA1c (Bld) [Mass fraction] 5.9 % Normal 4.5-6.2 [facility] Comment on above: Performed By: #### L IVER, BMP, TSH, LIPID #### [facility] [address] [place] [address] Dr. Jensen Mckeon LIPID PROFILEon 04-09-2022 CHOL-HDL RATIO NORM SEE BELOW Normal [facility] Comment on above: Result Comment: 3.3 - 4.4 LOW RISK 4.4 - 7.1 AVERAGE RISK 7.1 - 11.0 MODERATE RISK >11.0 HIGH RISK Performed By: #### L IVER, BMP, TSH, LIPID #### [facility] [address] [address] [address] Jensen Mckeon Cholesterol [Mass/Vol] 174 mg/dL Normal <=200 [facility] Comment on above: Performed By: #### L IVER, BMP, TSH, LIPID #### [facility] [address] [address] [address] Jensen Mckeon Cholesterol in HDL [Mass/Vol] 75 mg/dL Critically high 40-60 [facility] Comment on above: Performed By: #### L IVER, BMP, TSH, LIPID #### [facility] [address] [address] [address] Jensen Mckeon Cholesterol in LDL [Mass/Vol] 86.0 mg/dL Normal [facility] Comment on above: Performed By: #### L IVER, BMP, TSH, LIPID #### [facility] [address] [address] [address] Jensen Mckeon Cholesterol.total/Cho lesterol in HDL [Mass ratio] 2.3 {ratio} Normal [facility] Comment on above: Performed By: #### L IVER, BMP, TSH, LIPID #### [facility] [address] [place] [address] Dr. Jensen Mckeon HDL NORMAL > or = 60 mg/dl - LO W CARDIOVASCULAR RISK <40 mg/dl - HIGH CARDIOVASCULAR RISK Normal [facility] Comment on above: Performed By: #### L IVER, BMP, TSH, LIPID #### [facility] [address] [address] [address] Jensen Mckeon LDL CALC NORMAL SEE BELOW Normal [facility] Comment on above: Result Comment: <100 mg/dl OPTIMAL 100 - 129 mg/dl NEAR OR ABOVE OPTIMAL 130 - 159 mg/dl BORDERLINE HIGH 160 - 189 mg/dl HIGH >190 mg/dl VERY HIGH Performed By: #### L IVER, BMP, TSH, LIPID #### [facility] [address] [place] [address] Dr. Jensen Mckeon Triglyceride [Mass/Vol] 65 mg/dL Normal <=150 [facility] Comment on above: Performed By: #### L IVER, BMP, TSH, LIPID #### [facility] [address] [address] [address] Jensen Mckeon VLDL CALC 13.0 mg/dL Normal [facility] Comment on above: Performed By: #### L IVER, BMP, TSH, LIPID #### [facility] [address] [address] [address] Jensen Mckeon LIVER PROFILEon 04-09-2022 Albumin [Mass/Vol] 3.9 g/dL Normal 3.4-5.0 [facility] Comment on above: Performed By: #### L IVER, BMP, TSH, LIPID #### [facility] [address] [place] [address] Dr. Jensen Mckeon Albumin/Globulin [Mass ratio] 1.0 {ratio} Normal [facility] Comment on above: Performed By: #### L IVER, BMP, TSH, LIPID #### [facility] [address] [place] [address] Dr. Jensen Mckeon ALP [Catalytic activity/Vol] 94 U/L Normal 46-116 [facility] Comment on above: Performed By: #### L IVER, BMP, TSH, LIPID #### [facility] [address] [place] [address] Dr. Jensen Mckeon ALT [Catalytic activity/Vol] 40 U/L Normal 14-59 [facility] Comment on above: Performed By: #### L IVER, BMP, TSH, LIPID #### [facility] [address] [place] [address] Dr. Jensen Mckeon AST [Catalytic activity/Vol] 22 U/L Normal 15-37 [facility] Comment on above: Performed By: #### L IVER, BMP, TSH, LIPID #### [facility] [address] [place] [address] Dr. Jensen Mckeon BILI, CONJUGATED 0.1 mg/dL Normal 0.0-0.2 [facility] Comment on above: Performed By: #### L IVER, BMP, TSH, LIPID #### [facility] [address] [place] [address] Dr. Jensen Mckeon Bilirubin [Mass/Vol] 0.2 mg/dL Normal 0.2-1.0 [facility] Comment on above: Performed By: #### L IVER, BMP, TSH, LIPID #### [facility] [address] [place] [address] Dr. Jenesn Mckeon Globulin (S) [Mass/Vol] 3.8 g/dL Normal [facility] Comment on above: Performed By: #### L IVER, BMP, TSH, LIPID #### [facility] [address] [address] [address] Jensen Mckeon Protein [Mass/Vol] 7.7 g/dL Normal 6.4-8.2 [facility] Comment on above: Performed By: #### L IVER, BMP, TSH, LIPID #### [facility] [address] [address] [address] Jensen Mckeon PROF CHEM 8 (BAS METB)on Anion gap [Moles/Vol] 11.3 mmol/L Normal [facility] Comment on above: Performed By: #### L IVER, BMP, TSH, LIPID #### [facility] [address] [address] [address] Jensen Mckeon Calcium [Mass/Vol] 9.5 mg/dL Normal 8.5-10.1 [facility] Comment on above: Performed By: #### L IVER, BMP, TSH, LIPID #### [facility] [address] [address] [address] Jensen Mckeon Chloride [Moles/Vol] 103 mmol/L Normal 98-107 [facility] Comment on above: Performed By: #### L IVER, BMP, TSH, LIPID #### [facility] [address] [place] [address] Dr. Jensen Mckeon CO2 [Moles/Vol] 27.8 mmol/L Normal 21.0-32.0 [facility] Comment on above: Performed By: #### L IVER, BMP, TSH, LIPID #### [facility] [address] [place] [address] Dr. Jensen Mckeon Creatinine [Mass/Vol] 0.79 mg/dL Normal 0.55-1.02 [facility] Comment on above: Performed By: #### L IVER, BMP, TSH, LIPID #### [facility] [address] [place] [address] Dr. Jensen Mckeon EGFR-AF URUGUAYAN >60 Normal >=60 [facility] Comment on above: Performed By: #### L IVER, BMP, TSH, LIPID #### [facility] [address] [place] [address] Dr. Jensen Mckeon EGFR-NON AF URUGUAYAN >60 Normal >=60 [facility] Comment on above: Performed By: #### L IVER, BMP, TSH, LIPID #### [facility] [address] [address] [address] Jensen Mckeon Glucose [Mass/Vol] 77 mg/dL Normal 74-106 [facility] Comment on above: Performed By: #### L IVER, BMP, TSH, LIPID #### [facility] [address] [place] [address] Dr. Jensen Mckeon Potassium [Moles/Vol] 4.1 mmol/L Normal 3.5-5.1 [facility] Comment on above: Performed By: #### L IVER, BMP, TSH, LIPID #### [facility] [address] [place] [address] Dr. Jensen Mckeon Sodium [Moles/Vol] 138 mmol/L Normal 136-145 [facility] Comment on above: Performed By: #### L IVER, BMP, TSH, LIPID #### [facility] [address] [place] [address] Dr. Jensen Mckeon Urea nitrogen [Mass/Vol] 15.0 mg/dL Normal 7.0-18.0 [facility] Comment on above: Performed By: #### L IVER, BMP, TSH, LIPID #### [facility] [address] [place] [address] Dr. Jensen Mckeon Urea nitrogen/Creatinine [Mass ratio] 19.0 mg/mg Normal [facility] Comment on above: Performed By: #### L IVER, BMP, TSH, LIPID #### [facility] [address] [place] [address] Dr. Jensen Mckeon TSHon 04-09-2022 TSH 0.959 uIU/mL Normal 0.358-3.740 [facility] Comment on above: Performed By: #### L IVER, BMP, TSH, LIPID #### [facility] [address] [place] [address] Dr. Jensen Mckeon CBC AUTO DIFFon 12-26-2021 BASO # 0.1 103/ul Normal 0.0-0.1 [facility] Comment on above: Performed By: #### L IVER, BMP, TSH, LIPID #### [facility] [address] [place] [address] Dr. Jensen Mckeon Basophils/100 WBC (Bld) 0.4 % Normal 0.2-2.0 [facility] Comment on above: Performed By: #### L IVER, BMP, TSH, LIPID #### [facility] [address] [place] [address] Dr. Jensen Mckeon EO # 0.1 103/ul Normal 0.0-0.7 [facility] Comment on above: Performed By: #### L IVER, BMP, TSH, LIPID #### [facility] [address] [place] [address] Dr. Jensen Mckeon Eosinophils/100 WBC (Bld) 0.4 % Critically low 0.9-7.0 [facility] Comment on above: Performed By: #### L IVER, BMP, TSH, LIPID #### [facility] [address] [place] [address] Dr. Jensen Mckeon Erythrocyte distribution width (RBC) [Ratio] 15.1 % Critically high 11.0-15.0 [facility] Comment on above: Performed By: #### L IVER, BMP, TSH, LIPID #### [facility] [address] [place] [address] Dr. Jensen Mckeon Hematocrit (Bld) [Volume fraction] 24.2 % Critically low 36.0-48.0 [facility] Comment on above: Performed By: #### L IVER, BMP, TSH, LIPID #### [facility] [address] [place] [address] Dr. Jensen Mckeon Hemoglobin (Bld) [Mass/Vol] 7.4 g/dL Critically low 12.0-16.0 [facility] Comment on above: Performed By: #### L IVER, BMP, TSH, LIPID #### [facility] [address] [place] [address] Dr. Jensen Mckeon IG # 0.18 10e3/ul Critically high 0.00-0.[address] [facility] Comment on above: Performed By: #### L IVER, BMP, TSH, LIPID #### [facility] [address] [address] [address] Jensen Mckeon IG % 1.3 % Critically high 0.0-0.5 [facility] Comment on above: Performed By: #### L IVER, BMP, TSH, LIPID #### [facility] [address] [address] [address] Jensen Mckeon LYMPH # 1.7 103/ul Normal 1.2-3.8 [facility] Comment on above: Performed By: #### L IVER, BMP, TSH, LIPID #### [facility] [address] [place] [address] Dr. Jensen Mckeon Lymphocytes/100 WBC (Bld) 12.4 % Critically low 20.5-60.0 [facility] Comment on above: Performed By: #### L IVER, BMP, TSH, LIPID #### [facility] [address] [place] [address] Dr. Jensen Mckeon MANUAL DIFF REQ NO Normal [facility] Comment on above: Performed By: #### L IVER, BMP, TSH, LIPID #### [facility] [address] [place] [address] Dr. Jensen Mckeon MCH (RBC) [Entitic mass] 24.9 pg Critically low 26.7-34.0 [facility] Comment on above: Performed By: #### L IVER, BMP, TSH, LIPID #### [facility] [address] [place] [address] Dr. Jensen Mckeon MCHC (RBC) [Mass/Vol] 30.6 g/dL Normal 29.9-35.2 [facility] Comment on above: Performed By: #### L IVER, BMP, TSH, LIPID #### [facility] [address] [place] [address] Dr. Jensen Mckeon MCV (RBC) [Entitic vol] 81.5 fL Normal 81.0-99.0 [facility] Comment on above: Performed By: #### L IVER, BMP, TSH, LIPID #### [facility] [address] [address] [address] Jensen Mckeon MONO # 1.0 103/ul Critically high 0.3-0.8 [facility] Comment on above: Performed By: #### L IVER, BMP, TSH, LIPID #### [facility] [address] [place] [address] Dr. Jensen Mckeon Monocytes/100 WBC (Bld) 7.4 % Normal 1.7-12.0 [facility] Comment on above: Performed By: #### L IVER, BMP, TSH, LIPID #### [facility] [address] [place] [address] Dr. Jensen Mckeon NEUT # 10.9 103/ul Critically high 1.4-6.5 [facility] Comment on above: Performed By: #### L IVER, BMP, TSH, LIPID #### [facility] [address] [place] [address] Dr. Jensen Mckeon Neutrophils/100 WBC (Bld) 78.1 % Critically high 43.0-75.0 [facility] Comment on above: Performed By: #### L IVER, BMP, TSH, LIPID #### [facility] [address] [place] [address] Dr. Jensen Mckeon Platelet mean volume (Bld) [Entitic vol] 9.0 fL Critically low 9.5-13.5 [facility] Comment on above: Performed By: #### L IVER, BMP, TSH, LIPID #### [facility] [address] [place] [address] Dr. Jensen Mckeon PLT 253 103/ul Normal 150-450 [facility] Comment on above: Performed By: #### L IVER, BMP, TSH, LIPID #### [facility] [address] [place] [address] Dr. Jensen Mckeon RBC 2.97 106/ul Critically low 4.20-5.40 [facility] Comment on above: Performed By: #### L IVER, BMP, TSH, LIPID #### [facility] [address] [place] [address] Dr. Jensen Mckeon WBC 13.9 103/ul Critically high 4.0-11.0 [facility] Comment on above: Performed By: #### L IVER, BMP, TSH, LIPID #### [facility] [address] [place] [address] Dr. Jensen Mckeon CBC AUTO DIFFon 12-25-2021 BASO # 0.1 103/ul Normal 0.0-0.1 [facility] Comment on above: Performed By: #### L IVER, BMP, TSH, LIPID #### [facility] [address] [place] [address] Dr. Jensen Mckeon Basophils/100 WBC (Bld) 0.8 % Normal 0.2-2.0 [facility] Comment on above: Performed By: #### L IVER, BMP, TSH, LIPID #### [facility] [address] [place] [address] Dr. Jensen Mckeon EO # 0.2 103/ul Normal 0.0-0.7 [facility] Comment on above: Performed By: #### L IVER, BMP, TSH, LIPID #### [facility] [address] [place] [address] Dr. Jensen Mckeon Eosinophils/100 WBC (Bld) 2.1 % Normal 0.9-7.0 [facility] Comment on above: Performed By: #### L IVER, BMP, TSH, LIPID #### [facility] [address] [place] [address] Dr. Jensen Mckeon Erythrocyte distribution width (RBC) [Ratio] 14.9 % Normal 11.0-15.0 [facility] Comment on above: Performed By: #### L IVER, BMP, TSH, LIPID #### [facility] [address] [place] [address] Dr. Jensen Mckeon Hematocrit (Bld) [Volume fraction] 29.8 % Critically low 36.0-48.0 [facility] Comment on above: Performed By: #### L IVER, BMP, TSH, LIPID #### [facility] [address] [address] [address] Jensen Mckeon Hemoglobin (Bld) [Mass/Vol] 9.5 g/dL Critically low 12.0-16.0 [facility] Comment on above: Performed By: #### L IVER, BMP, TSH, LIPID #### [facility] [address] [place] [address] Dr. Jensen Mckeon IG # 0.19 10e3/ul Critically high 0.00-0.[address] [facility] Comment on above: Performed By: #### L IVER, BMP, TSH, LIPID #### [facility] [address] [place] [address] Dr. Jensen Mckeon IG % 2.0 % Critically high 0.0-0.5 [facility] Comment on above: Performed By: #### L IVER, BMP, TSH, LIPID #### [facility] [address] [place] [address] Dr. Jensen Mckeon LYMPH # 1.9 103/ul Normal 1.2-3.8 [facility] Comment on above: Performed By: #### L IVER, BMP, TSH, LIPID #### [facility] [address] [place] [address] Dr. Jensen Mckeon Lymphocytes/100 WBC (Bld) 20.6 % Normal 20.5-60.0 [facility] Comment on above: Performed By: #### L IVER, BMP, TSH, LIPID #### [facility] [address] [place] [address] Dr. Jensen Mckeon MANUAL DIFF REQ NO Normal [facility] Comment on above: Performed By: #### L IVER, BMP, TSH, LIPID #### [facility] [address] [place] [address] Dr. Jensen Mckeon MCH (RBC) [Entitic mass] 25.3 pg Critically low 26.7-34.0 [facility] Comment on above: Performed By: #### L IVER, BMP, TSH, LIPID #### [facility] [address] [place] [address] Dr. Jensen Mckeon MCHC (RBC) [Mass/Vol] 31.9 g/dL Normal 29.9-35.2 [facility] Comment on above: Performed By: #### L IVER, BMP, TSH, LIPID #### [facility] [address] [place] [address] Dr. Jensen Mckeon MCV (RBC) [Entitic vol] 79.3 fL Critically low 81.0-99.0 [facility] Comment on above: Performed By: #### L IVER, BMP, TSH, LIPID #### [facility] [address] [place] [address] Dr. Jensen Mckeon MONO # 0.8 103/ul Normal 0.3-0.8 [facility] Comment on above: Performed By: #### L IVER, BMP, TSH, LIPID #### [facility] [address] [place] [address] Dr. Jensen Mckeon Monocytes/100 WBC (Bld) 8.0 % Normal 1.7-12.0 [facility] Comment on above: Performed By: #### L IVER, BMP, TSH, LIPID #### [facility] [address] [place] [address] Dr. Jensen Mckeon NEUT # 6.2 103/ul Normal 1.4-6.5 [facility] Comment on above: Performed By: #### L IVER, BMP, TSH, LIPID #### [facility] [address] [place] [address] Dr. Jensen Mckeon Neutrophils/100 WBC (Bld) 66.5 % Normal 43.0-75.0 [facility] Comment on above: Performed By: #### L IVER, BMP, TSH, LIPID #### [facility] [address] [place] [address] Dr. Jensen Mckeon Platelet mean volume (Bld) [Entitic vol] 9.2 fL Critically low 9.5-13.5 [facility] Comment on above: Performed By: #### L IVER, BMP, TSH, LIPID #### [facility] [address] [place] [address] Dr. Jensen Mckeon PLT 300 103/ul Normal 150-450 [facility] Comment on above: Performed By: #### L IVER, BMP, TSH, LIPID #### [facility] [address] [address] [address] Jensen Mckeon RBC 3.76 106/ul Critically low 4.20-5.40 [facility] Comment on above: Performed By: #### L IVER, BMP, TSH, LIPID #### [facility] [address] [address] [address] Jensen Mckeon WBC 9.3 103/ul Normal 4.0-11.0 [facility] Comment on above: Performed By: #### L IVER, BMP, TSH, LIPID #### [facility] [address] [place] [address] Dr. Jensen Mckeon CULTURE URINEon 12-25-2021 CULTURE URINE Culture Observations : LIGHT GROWTH OF MIXED GENITAL DALIA. NO POTENTIAL PATHOGENS SEEN. Normal [facility] Comment on above: Performed By: #### L IVER, BMP, TSH, LIPID #### [facility] [address] [address] [address] Jensen Mckeon DRUG SCREEN RAPID (URINE)on 12-25-2021 AMP Negative Normal NEGATIVE [facility] Comment on above: Performed By: #### D RUGRPD #### [facility] [address] [place] [address] Dr. Jensen Mckeon BAR Negative Normal NEGATIVE [facility] Comment on above: Performed By: #### D RUGRPD #### [facility] [address] [address] [address] Jensen Mckeon BUP Negative Normal NEGATIVE [facility] Comment on above: Performed By: #### D RUGRPD #### [facility] [address] [place] [address] Dr. Jensen Mckeon BZO Negative Normal NEGATIVE [facility] Comment on above: Performed By: #### D RUGRPD #### [facility] [address] [place] [address] Dr. Jensen Mckeon WES Negative Normal NEGATIVE [facility] Comment on above: Performed By: #### D RUGRPD #### [facility] [address] [place] [address] Dr. Jensen Mckeon CUT-OFFS SEE BELOW Normal [facility] Comment on above: Result Comment: AMP (Amphetamine): 500ng/mL, BAR (Barbituates): 200 ng/mL, BZO (Benzodiazepines): 150 ng/mL, BUP (Buprenorphine): 10 ng/mL, WES (Cocaine): 150 ng/mL, mAMP (Methamphetamine): 500 ng/mL, MTD (Methadone): 200 ng/mL, OPI (Opiates): 100 ng/mL, OXY (Oxycodone): 100 ng/mL, PCP (Phencyclidine): 25 ng/mL, PPX (Propoxyphene): 300 ng/mL, THC (Cannabinoids): 50 ng/mL, TCA (Trycyclic Antidepressants): 300 ng/mL Performed By: #### D RUGRPD #### [facility] [address] [place] [address] Dr. Jensen Mckeon DRUG CUT HEADER DRUG CLASS TEST SYSTEM CUT-OFF CONCENTRATIONS ARE FOLLOWS: Normal [facility] Comment on above: Performed By: #### D RUGRPD #### [facility] [address] [place] [address] Dr. Jensen Mckeon mAMP Negative Normal NEGATIVE [facility] Comment on above: Performed By: #### D RUGRPD #### [facility] [address] [place] [address] Dr. Jensen Mckeon MTD Negative Normal NEGATIVE [facility] Comment on above: Performed By: #### D RUGRPD #### [facility] [address] [place] [address] Dr. Jensen Mckeon OPI Negative Normal NEGATIVE [facility] Comment on above: Performed By: #### D RUGRPD #### [facility] [address] [place] [address] Dr. Jensen Mckeon OXY Negative Normal NEGATIVE [facility] Comment on above: Performed By: #### D RUGRPD #### [facility] [address] [place] [address] Dr. Jensen Mckeon PCP Negative Normal NEGATIVE [facility] Comment on above: Performed By: #### D RUGRPD #### [facility] [address] [place] [address] Dr. Jensen Mckeon PPX Negative Normal NEGATIVE [facility] Comment on above: Performed By: #### D RUGRPD #### [facility] [address] [address] [address] Jensen Mckeon TCA Negative Normal NEGATIVE [facility] Comment on above: Performed By: #### D RUGRPD #### [facility] [address] [place] [address] Dr. Jensen Mckeon THC Negative Normal NEGATIVE [facility] Comment on above: Performed By: #### D RUGRPD #### [facility] [address] [place] [address] Dr. Jensen Mckeon TYPE AND SCREENon 12-25-2021 TYPE AND SCREEN Negative Normal [facility] Comment on above: Performed By: #### L IVER, BMP, TSH, LIPID #### [facility] [address] [place] [address] Dr. Jensen Mckeon UA (CLEAN/CATCH) GUNNER MATE/MICRO I F IND.on 12-25-2021 Bilirubin Ql (U) Negative Normal NEGATIVE [facility] Comment on above: Performed By: #### U ACSIND, UMICRO #### [facility] [address] [place] [address] Dr. Jensen Mckeon Clarity (U) CLEAR Normal CLEAR [facility] Comment on above: Performed By: #### U ACSIND, UMICRO #### [facility] [address] [place] [address] Dr. Jensen Mckeon Color (U) LT. YELLOW Normal YELLOW [facility] Comment on above: Performed By: #### U ACSIND, UMICRO #### [facility] [address] [place] [address] Dr. Jensen Mckeon Glucose Ql (U) Negative Normal NEGATIVE [facility] Comment on above: Performed By: #### U ACSIND, UMICRO #### [facility] [address] [place] [address] Dr. Jensen Mckeon Hemoglobin Ql (U) Negative Normal NEGATIVE [facility] Comment on above: Performed By: #### U ACSIND, UMICRO #### [facility] [address] [address] [address] Jensen Mckeon Ketones Ql (U) Negative Normal NEGATIVE [facility] Comment on above: Performed By: #### U ACSIND, UMICRO #### [facility] [address] [address] [address] Jensen Mckeon LEUKOCYTES TRACE Abnormal NEGATIVE [facility] Comment on above: Performed By: #### U ACSIND, UMICRO #### [facility] [address] [address] [address] Jensen Mckeon Nitrite Ql (U) Negative Normal NEGATIVE [facility] Comment on above: Performed By: #### U ACSIND, UMICRO #### [facility] [address] [place] [address] Dr. Jensen Mckeon pH (U) 6.5 [pH] Normal 5-9 [facility] Comment on above: Performed By: #### U ACSCASSANDRA, UMICRO #### [facility] [address] [place] [address] Dr. Jensen Mckeon SPEC GRAVITY 1.025 Normal 1.005-<=1.025 [facility] Comment on above: Performed By: #### U ACSCASSANDRA UMICRO #### [facility] [address] [place] [address] Dr. Jensen Mckeon UA PROTEIN Negative Normal NEGATIVE/ TRACE [facility] Comment on above: Performed By: #### U ACSCASSANDRA UMICRO #### [facility] [address] [address] [address] Jensen Mckeon UR MICRO IND INDICATED Normal [facility] Comment on above: Performed By: #### U ACSCASSANDRA, UMICRO #### [facility] [address] [place] [address] Dr. Jensen Mckeon Urobilinogen Qn (U) 0.2 {Cherelle'U}/dL Normal 0.2 - 1. 0 [facility] Comment on above: Performed By: #### U ACSIND, UMICRO #### [facility] [address] [place] [address] Dr. Jensen Mckeon URINE MICROSCOPIC ONLYon BACTERIA MODERATE Abnormal NONE SEEN [facility] Comment on above: Performed By: #### U ACSIND, UMICRO #### [facility] [address] [place] [address] Dr. Jensen Mckeon Bacteria identified Cx Nom (U) INDICATED Normal [facility] Comment on above: Performed By: #### U ACSIND, UMICRO #### [facility] [address] [place] [address] Dr. Jensen Mckeon CAST NONE SEEN Normal NONE SEEN [facility] Comment on above: Performed By: #### U ACSIND, UMICRO #### [facility] [address] [place] [address] Dr. Jensen Mckeon Crystals LM Nom (Urine sed) NONE SEEN Normal NONE SEEN [facility] Comment on above: Performed By: #### U ACSIND, UMICRO #### [facility] [address] [place] [address] Dr. Jensen Mckeon Epithelial cells LM Ql (Urine sed) MANY Abnormal NONE SEEN /RARE [facility] Comment on above: Performed By: #### U ACSCASSANDRA, UMICRO #### [facility] [address] [place] [address] Dr. Jensen Mckeon MUCOUS NONE SEEN Normal NONE SEEN [facility] Comment on above: Performed By: #### U ACSIND, UMICRO #### [facility] [address] [place] [address] Dr. Jensen Mcekon RBC 0-2 Normal 0-2 [facility] Comment on above: Performed By: #### U ACSIND, UMICRO #### [facility] [address] [place] [address] Dr. Jensen Mckeon WBC 5-10 Abnormal NONE SEEN [facility] Comment on above: Performed By: #### U ACSIND, UMICRO #### [facility] [address] [place] [address] Dr. Jensen Mckeon Covid-19 PCR (CVDTB)on 12-12 SARS-CoV-2 (COVID-19) RNA SRAVANTHI+probe Ql (Unsp spec) Not detected Normal NOT DETECTED [facility] Comment on above: Result Comment: This test is not yet approved or cleared by the [place] FDA. When there are no FDA-approved or cleared tests available, and other criteria are met, FDA can make tests available under an emergency access mechanism called an Emergency Use Authorization (EUA). The EUA for this test is supported by the [place] of Health and Human Service's (HHS's) declaration [...] #### L IVER, BMP, TSH, LIPID #### [facility] [address] [place] [address] Dr. Jensen Mckeon US PREG BIOPHY W [...] MARCELLE MARTINEZ Date: 2021-12-22 19:25 Normal [facility] US PREG BIOPHY W NON [...] by: SIRENA FRANKS Date: 2021-12-17 17:13 Normal [facility] US PREG BIOPHY W NON STRESS EXAMINATION: [...] by: SIRENA FRANKS Date: 2021-12-17 16:20 Normal [facility] US PREG BIOPHY W NON STRESSo [...] MARCELLE MARTINEZ Date: 2021-12-08 16:05 Normal [facility] GROUP B STREP CULTUREon 11-13 S. agalactiae Ag Ql (Unsp spec) Culture Observations: NEGATIVE FOR GROUP B STREPTOCOCCUS. Normal [facility] Comment on above: Performed By: #### L IVER, BMP, TSH, LIPID #### [facility] [address] [place] [address] Dr. Jensen Mckeon US PREG BIOPHY W [...] by: SIRENA FRANKS Date: 2021-12-01 17:21 Normal [facility] US PREG BIOPHY W NON STRESSo [...] by: SIRENA FRANKS Date: 2021-11-24 17:26 Normal [facility] US PREG BIOPHY W NON STRESSo [...] by: MARCELLE MARTINEZ Date: 2021-11-17 18:19 Normal [facility] US PREG BIOPHY W NON STRESSo [...] SIRENA FRANKS Date: 2021-11-13 07:25 Normal [facility] US PREG GROWTHon 10-13-2021 US [...] SIRENA FRANKS Date: 2021-10-13 09:49 Normal [facility] GTT 3 HR PREGon 09-10-2021 Glucose [Mass/Vol] 82 mg/dL Normal 74-106 [facility] Comment on above: Performed By: #### G TT3P #### [facility] [address] [address] [address] Jensen Mckeon Glucose [Mass/Vol] 123 mg/dL Normal [facility] Comment on above: Performed By: #### G TT3P #### [facility] [address] [address] [address] Jensen Mckeon Glucose [Mass/Vol] 104 mg/dL Normal [facility] Comment on above: Performed By: #### G TT3P #### [facility] [address] [place] [address] Dr. Jensen Mckeon Glucose [Mass/Vol] 76 mg/dL Normal [facility] Comment on above: Performed By: #### G TT3P #### [facility] [address] [place] [address] Dr. Jensen Mckeon GLUCOSE - 1HRon 09-04-2021 Glucose [Mass/Vol] 150 mg/dL Critically high 74-106 [facility] Comment on above: Performed By: #### L IVER, BMP, TSH, LIPID #### [facility] [address] [place] [address] Dr. Jensen Mckeon HEMOGRAM AND PLATELon 2021 Hematocrit (Bld) [Volume fraction] 31.9 % Critically low 36.0-48.0 [facility] Comment on above: Performed By: #### H H #### [facility] [address] [place] [address] Dr. Jensen Mckeon Hemoglobin (Bld) [Mass/Vol] 10.5 g/dL Critically low 12.0-16.0 [facility] Comment on above: Performed By: #### H H #### [facility] [address] [place] [address] Dr. Jensen Mckeon MCH (RBC) [Entitic mass] 28.8 pg Normal 26.7-34.0 [facility] Comment on above: Performed By: #### H H #### [facility] [address] [place] [address] Dr. Jensen Mckeon MCHC (RBC) [Mass/Vol] 32.9 g/dL Normal 29.9-35.2 [facility] Comment on above: Performed By: #### H H #### [facility] [address] [place] [address] Dr. Jensen Mckeon MCV (RBC) [Entitic vol] 87.6 fL Normal 81.0-99.0 [facility] Comment on above: Performed By: #### H H #### [facility] [address] [address] [address] Jensen Mckeon PLT 321 103/ul Normal 150-450 [facility] Comment on above: Performed By: #### H H #### [facility] [address] [address] [address] Jensen Mckeon RBC 3.64 106/ul Critically low 4.20-5.40 [facility] Comment on above: Performed By: #### H H #### [facility] [address] [address] [address] Jensen Mckeon WBC 11.6 103/ul Critically high 4.0-11.0 [facility] Comment on above: Performed By: #### H H #### [facility] [address] [address] [address] Jensen Mckeon US PREG PLACENTAon 2 US PREG PLACENTA EXAMINATION: US PREG PLACENTA HISTORY: Low lying placenta follow-up COMPARISON: Ultrasound anatomy 08/15/2021 FINDINGS: PLACENTA: Anterior with lower margin 5.8 cm from os. CERVIX LENGTH: 4.8 cm; closed. HEART RATE: 148 bpm OTHER: None. IMPRESSION: 1. Anterior placenta which is no longer low-lying. Electronically authenticated by: SIRENA FRANKS Date: 2021-09-04 16:31 Normal [facility] US PREG ANATOMY SINGLEon US [...] by ultrasound, 88% by expected EDC; FL/AC: 0.464993 FL/BPD: 0.795566 HC/AC: 1.993699 GESTATIONAL AGE: Age by EDC: 20 weeks 1 day [place] by EDC: 01/01/2022 Age by current US: 20 weeks 4 days [place] by current US: 12/29/2021 IMPRESSION: Low lying placenta, otherwise normal anatomy scan *Reference: [employer] Practice Guideline for the performance of Obstetric Ultrasound Examinations, March 14, 2007. Electronically authenticated by: MARCELLE MARTINEZ Date: 2021-08-15 10:06 Normal [facility] Vital Signs Date Time Vital Sign Value Performing Clinician Faci lity 07-27-2023 15:28-0500 Body mass index (BMI) [Ratio] 28.42 kg/m2 Tami Vi DO Work Phone: [facility] 07-27-2023 15:28-0500 Body weight 70.49 kg Tami Vi DO Work Phone: [facility] 07-27-2023 15:28-0500 Diastolic blood pressure 74 mm[Hg] Tami Vi DO Work Phone: [facility] 07-27-2023 15:28-0500 Systolic blood pressure 114 mm[Hg] Tami Vi DO Work Phone: [facility] Healthcare Encounters Encounter Date Encounter Type Care Provider Facility Start: 10-19-2023 End: 10-19-2023 ambulatory VASYL LEON Not Available Start: 10-11-2023 End: 10-11-2023 ambulatory TAMI VI Not Available Start: 09-02-2023 End: 09-02-2023 ambulatory TAMI VI Not Available Start: 07-27-2023 End: 07-27-2023 ambulatory TAMI VI Not Available Start: 07-27-2023 End: 07-27-2023 Patient encounter procedure Tami Vi DO Work Phone: [facility] Work Phone: Start: 07-27-2023 End: 07-27-2023 Periodic preventive med est patient 18-39 yrs Tami Lebron DO Work Phone: [facility] Comment on above: Well woman exam with routine gynecological exam; Dyspareunia in female; Hypertrophy of labia Start: 07-14-2023 Patient encounter procedure Tami Lebron DO Work Phone: [facility] Work Phone: Start: 07-14-2023 End: 07-14-2023 ambulatory ASHER FULLER Not Available Start: 07-21-2022 End: 07-21-[address] TAMI LEBRON Facility:[facility] Start: 04-12-2022 Encounter for genera l adult medical examination without abnormal findings DR ASHER FULLER [facility] Start: 04-09-2022 End: 04-10-[address] ASHER [...] encounter procedure 09/02/2023 9:50 AM EDT Consult [facility] [address] [place] [id number] Tami Lebron, [address] [place] [address] [facility] Start: 02-12-2023 Influenza vaccination Influenza Vacc ine (#1) [facility] Start: 2014 Screening for malign ant neoplasm of cervix [facility] Start: 2005 Screening for malign ant neoplasm of cervix Pap Smear [facility] Cytology Cervical or vaginal smear or scraping study Pap Smear Pathology and Cytology Routine Well woman exam with routine gynecological exam Ordered: 07/27/2023 [facility] Work Phone: Comment on above: Ordered: 07/27/2023 Human papilloma viru s DNA [Presence] in Unspecified specimen by Probe with amplification HPV DNA probe, amplified Microbiology Routine Well woman exam with routine gynecological exam Ordered: 07/27/2023 [facility] Comment on above: Ordered: 07/27/2023 Payers Date Payer Category Payer Unknown BCBS BCBS [id number] [id number] 2021-Present [phone] [address] [place] [address] [id number] 1984 Unknown [id number] [id number]3 1984 Unknown [id number] 2.16.840.1.496861.3.579.2.593 1984 Unknown [id number] 2.16.840.1.880911.3.579.2.593 1984 Unknown [id number] 2.16.840.1.005097.3.579.2.593 1984 Unknown [id number] 2.16.840.1.676024.3.579.2.593 1984 Unknown [id number] 2.16.840.1.468669.3.579.2.593 1984 Unknown [id number] 2.16.840.1.496927.3.579.2.593 1984 Unknown [id number] 2.16.840.1.523971.3.579.2.593 1984 Unknown [id number] 2.16.840.1.470574.3.579.2.593 1984 Unknown [id number] 2.16.840.1.883552.3.579.2.593 1984 Unknown [id number] 2.16.840.1.553335.3.579.2.593 1984 Unknown [id number] 2.16.840.1.033058.3.579.2.593 1984 Unknown [id number] 2.16.840.1.256986.3.579.2.593 1984 Unknown [id number] 2.16.840.1.296347.3.579.2.593 1984 Unknown [id number] 2.16.840.1.653212.3.579.2.593 1984 Unknown [id number] 2.16.840.1.372068.3.579.2.593 1984 Unknown [id number] 2.16.840.1.012729.3.579.2.593 1984 Unknown [id number] 2.16.840.1.828795.3.579.2.593 1984 Unknown [id number] 2.16.840.1.923384.3.579.2.1259 1984 Unknown [id number] 2.16.840.1.848437.3.579.2.1259 1984 Unknown [id number] 2.16.840.1.916816.3.579.2.1259 1984 Unknown [id number] 2.16.840.1.048646.3.579.2.1259 1984 Unknown [id number] 2.16.840.1.391375.3.579.2.1259 1959 Unknown [id number] Social History Date Type Detail Facility Start: 07-14-2023 Tobacco smoking status [facility] Never sm oked tobacco [facility] Start: [...] to any clubs or organizations such as advent groups, unions, fraternal or athletic groups, or [...] Gender identity Identifies as female gender (finding) [facility] History of Present illness Narrative 07-27-2023 Estephanie EsparzaMINAL - 07/27/2023 3:00 PM EST Note Date & Type Note Facility 07-27-2023 History of Presen t illness Narrative Reason for Appointment: Patient ID: Emily Pruitt is a 37 y.o. female who presents for Well Women Visit Patient presents today for Annual Exam appointment. Current Medications: currently has no medications in their medication list. Medical History: Active Ambulatory Problems Diagnosis Date Noted Asthma ([facility]) 07/14/2023 Genital herpes 07/14/2023 Recurrent major depression in remission (HCC) ([facility]) 07/14/2023 Plantar fasciitis, left 07/14/2023 Annual physical exam 07/14/2023 Stress reaction 07/14/2023 Resolved Ambulatory Problems Diagnosis Date Noted No Resolved Ambulatory Problems Past Medical History: Diagnosis Date BMI 26.0-26.9,adult GERD (gastroesophageal reflux disease) H/O bronchitis MDD (recurrent major depressive disorder) in remission (HCC) ([facility]) Reactive airway disease ([facility]/HCC) Seasonal allergies Varicose veins of legs Varicose [...] nursing note reviewed. Exam conducted with a erp developer present. Vitals: Estimated body mass index is [...] Tami Lebron DO documented in this encounter [facility] Clinical Note 12-25-2021 Note Date & Type Note Facility 12-25-2021 Note OPERATIVE NOTE OPERATION DATE: 12/25/2021 PROCEDURE: Repeat low transverse section. PREOPERATIVE DIAGNOSIS: 1. Intrauterine at 39 weeks. 2. Previous . POSTOPERATIVE DIAGNOSIS: 1. Intrauterine at 39 weeks. 2. Previous . ANESTHESIA: Spinal with Duramorph. SURGEON: Tami Lebron D.O. OIL WELL PERFORATOR OPERATOR: GABRIEL Nesbitt URINE OUTPUT: Yellow and clear. [...] to the Recovery Room in stable condition. [facility] Signed and Approved by: DR TAMI LEBRON . 12/27/2021 11:59:00 [facility] Discharge summary note 12-25-2021 Note [...] free and no longer on narcotics. [facility] Evaluation note Note Date & [...] and content) DATE CREATED AUTHOR 07/28/2022 [facility] DATE CREATED AUTHOR AUTHOR'S ORGANIZ ATION 10/20/2023 [facility] EPIC Reason for Visit (unrecogniz ed section and content) Reason Comments Well Women Visit Care Teams (unrecognized sec tion and content) [employer] Relationship Specialty Start Date End Date Asher Fuller MD [address] [place] [id number] PCP - General Family Medicine 07/27/23 FOR [...] BE BASED ON THE PRIMARY CLINICAL RECORDS. [facility]. provides no warranty or guarantee of the accuracy or completeness of information in this document.
== END 2024-08-01 20:23 | disposition home or self-care (01) ==
LOC: LAB 20:22
PROVIDERS: PCP Family Medicine; Visit Provider Obstetrics & Gynecology
DX: Z01.419 Encounter for gynecological examination (general) (routine) without abnormal findings (principal)
CPT/HCPCS: 87624; 88175

== ENCOUNTER 2024-08-17 10:05 | Outpatient (OUT) | payer BC, SELFPAY ==
--- NOTE | 2024-08-17 10:08 | MM_ITS ---
Patient Name: KARLO SANZ MR#: [id number] : 1985 Exam Date: 08/17/2024 Ordering Doctor: DR TAMI MULLER . RADIOLOGY REPORT PROCEDURE: MM TOMOSYNTHESIS SCREENING BI COMPARISON: None. INDICATIONS: screening for malignant neoplasm of breast Calculator Name NCI Breast Cancer Risk Assessment Tool 5 Year Breast Cancer Risk 0.60% Lifetime Breast Cancer Risk 11.10% Personal Breast Cancer No Personal Ovarian Cancer No Treatments None Family Cancers Grandmother-maternal with unknown cancer at age 70. LOCATION: [facility] BREAST COMPOSITION: The breasts are heterogeneously dense,which may obscure small masses. FINDINGS: DIAGNOSTIC CATEGORY 1--NEGATIVE. RIGHT BREAST: No significant suspicious finding. LEFT BREAST: No significant suspicious finding. RECOMMENDATIONS: ROUTINE MAMMOGRAM AND CLINICAL EVALUATION IN 12 MONTHS. PLEASE NOTE: A NORMAL MAMMOGRAM DOES NOT EXCLUDE THE POSSIBILITY OF BREAST CANCER. A CLINICALLY SUSPICIOUS PALPABLE LUMP SHOULD BE BIOPSIED. Dictated by: Aj Evans DO on 08/17/2024 at 15:55 Approved by: Aj Evans DO on 08/17/2024 at 15:58
== END 2024-08-17 10:06 | disposition home or self-care (01) ==
LOC: MAMMO 10:05
PROVIDERS: PCP Family Medicine; Visit Provider Obstetrics & Gynecology
DX: Z12.31 Encounter for screening mammogram for malignant neoplasm of breast (principal); Z80.8 Family history of malignant neoplasm of other organs or systems
CPT/HCPCS: 77063; 77067